=== PATIENT | female | born 1955 | race Caucasian/White ===

== ENCOUNTER 2021-04-26 10:10 | Outpatient (REF) | payer MEDICARE, OTHER, SELFPAY ==
--- NOTE | ~2021-04-26 | XR_ITS ---
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 Left shoulder pain. COMPARISON: None TECHNIQUE: 3 views of the lumbosacral spine and 4 views, 6 images of the left shoulder were obtained. FINDINGS: Lumbosacral spine: There is a transitional lumbar vertebrae present with with bilateral partial sacralization. Mild thoracolumbar levoscoliosis is present. There is grade 1 anterolisthesis of L3 and grade 1 retrolisthesis of L1 vertebral body. Moderate multilevel degenerative spondylosis related changes are noted throughout the entire lower lumbar and upper lumbar spine. Significant facet joint arthritic changes are noted bilaterally. The prespinal soft tissues are remarkable for atherosclerotic disease of the aorta including splenic arterial calcifications. Left shoulder: The bony alignments are intact. Decreased joint space, subchondral sclerosis, osteophyte formations, consistent with severe osteoarthrosis is noted at the glenohumeral joint. Acromioclavicular joint appears unremarkable. The soft tissues are unremarkable. No evidence of any superimposed fracture or subluxation or dislocation. XR/XR shoulder LT min 2V IMPRESSION: 1. The lumbosacral spine is remarkable for bilateral partial sacralization with thoracolumbar mild levoscoliosis and superimposed grade 1 anterolisthesis of L3 and grade 1 retrolisthesis of L1 vertebral body and multilevel moderate degenerative spondylosis and significant facet degenerative arthritic changes. 2. The left shoulder shows severe osteoarthrosis of the glenohumeral joint.
--- NOTE | ~2021-04-26 | XR_ITS ---
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 Left shoulder pain. COMPARISON: None TECHNIQUE: 3 views of the lumbosacral spine and 4 views, 6 images of the left shoulder were obtained. FINDINGS: Lumbosacral spine: There is a transitional lumbar vertebrae present with with bilateral partial sacralization. Mild thoracolumbar levoscoliosis is present. There is grade 1 anterolisthesis of L3 and grade 1 retrolisthesis of L1 vertebral body. Moderate multilevel degenerative spondylosis related changes are noted throughout the entire lower lumbar and upper lumbar spine. Significant facet joint arthritic changes are noted bilaterally. The prespinal soft tissues are remarkable for atherosclerotic disease of the aorta including splenic arterial calcifications. Left shoulder: The bony alignments are intact. Decreased joint space, subchondral sclerosis, osteophyte formations, consistent with severe osteoarthrosis is noted at the glenohumeral joint. Acromioclavicular joint appears unremarkable. The soft tissues are unremarkable. No evidence of any superimposed fracture or subluxation or dislocation. XR/XR lumbar spine 2-3V IMPRESSION: 1. The lumbosacral spine is remarkable for bilateral partial sacralization with thoracolumbar mild levoscoliosis and superimposed grade 1 anterolisthesis of L3 and grade 1 retrolisthesis of L1 vertebral body and multilevel moderate degenerative spondylosis and significant facet degenerative arthritic changes. 2. The left shoulder shows severe osteoarthrosis of the glenohumeral joint.
== END 2021-04-26 10:11 | disposition home or self-care (01) ==
LOC: HO.XRAY 10:10
PROVIDERS: PCP Internal Medicine; Visit Provider Internal Medicine
DX: M47.816 Spondylosis without myelopathy or radiculopathy, lumbar region (principal); M25.512 Pain in left shoulder
CPT/HCPCS: 72100; 73030; 99202

== ENCOUNTER 2021-05-05 05:53 | Outpatient (REF) | payer MEDICARE, OTHER, SELFPAY ==
--- NOTE | ~2021-05-05 | FL_ITS ---
EXAMINATION: XR FLUOROSCOPY WITH IMAGES CLINICAL INFORMATION: M47.816 - Spondylosis without myelopathy or radiculopathy COMPARISON: Radiographs lumbar spine 04/26/2021 TECHNIQUE: Fluoroscopy performed by Dr. Destin Medel. Fluoroscopy time: 0.5 minutes DAP: 12.1 Gycm2 Images: 4 FINDINGS: There is transitional vertebrae at lumbosacral junction with partial lumbarization of the sacrum. For the purposes of this exam, the transitional vertebrae is considered S1. There are multilevel degenerative changes with variable disc narrowing and vertebral spurring. There are spinal needles overlying the outer left L3, L4, and L5 neural foramen and outer right L4 and L5 neural foramen. There is contrast seen in the respective nerve sheaths. Some early transforaminal epidural extension is suggested. No visible vascular communication. FL/FL guidance in treatment room IMPRESSION: Fluoroscopy for pain management procedures.
== END 2021-05-05 05:54 | disposition home or self-care (01) ==
LOC: HO.RADIR 05:53
PROVIDERS: Visit Provider Internal Medicine
DX: M47.816 Spondylosis without myelopathy or radiculopathy, lumbar region (principal); I10 Essential (primary) hypertension; E03.9 Hypothyroidism, unspecified; E66.01 Morbid (severe) obesity due to excess calories; Z79.899 Other long term (current) drug therapy
CPT/HCPCS: 64493; 64494; Q9967

== ENCOUNTER → 2021-05-17 10:05 | Outpatient (BNVA) | payer MEDICARE, OTHER, SELFPAY | PROVIDERS: PCP Internal Medicine; Visit Provider Internal Medicine | DX: M54.30 Sciatica, unspecified side (principal); M47.816 Spondylosis without myelopathy or radiculopathy, lumbar region; M54.9 Dorsalgia, unspecified; M25.512 Pain in left shoulder; G89.29 Other chronic pain | CPT/HCPCS: 99212 ==

== ENCOUNTER → 2021-06-04 09:31 | Outpatient (BNVA) | payer MEDICARE, OTHER, SELFPAY | PROVIDERS: PCP Internal Medicine; Visit Provider Internal Medicine | DX: Z51.81 Encounter for therapeutic drug level monitoring (principal); F11.20 Opioid dependence, uncomplicated; M54.9 Dorsalgia, unspecified; M25.512 Pain in left shoulder; M47.816 Spondylosis without myelopathy or radiculopathy, lumbar region; G89.29 Other chronic pain | CPT/HCPCS: 99212 ==

== ENCOUNTER 2021-06-23 06:18 | Outpatient (REF) | payer MEDICARE, OTHER, SELFPAY ==
--- NOTE | ~2021-06-23 | FL_ITS ---
EXAMINATION: XR FLUOROSCOPY WITH IMAGES CLINICAL INFORMATION: Left shoulder pain COMPARISON: Radiographs of shoulder from 04/26/2021 TECHNIQUE: Fluoroscopy performed by Dr. Medel. Fluoroscopy time: 0.23 minutes DAP: 0.386 Gycm2 Images: 1 image is saved FL/FL guidance in treatment room FINDINGS AND IMPRESSION: Fluoroscopic imaging performed at time of the injection procedure into the region of the degenerated glenohumeral joint. Please refer to the procedure report by Dr. Medel.
== END 2021-06-23 06:19 | disposition home or self-care (01) ==
LOC: HO.RADIR 06:18
PROVIDERS: Visit Provider Internal Medicine
DX: M25.512 Pain in left shoulder (principal)
CPT/HCPCS: 20610; J3300; Q9967

== ENCOUNTER → 2021-07-23 08:46 | Outpatient (BNVA) | payer MEDICARE, OTHER, SELFPAY | PROVIDERS: PCP Internal Medicine; Visit Provider Internal Medicine | DX: M47.816 Spondylosis without myelopathy or radiculopathy, lumbar region (principal); M25.512 Pain in left shoulder; Z79.891 Long term (current) use of opiate analgesic | CPT/HCPCS: Q3014 ==

== ENCOUNTER 2021-08-04 06:17 | Outpatient (REF) | payer MEDICARE, OTHER, SELFPAY ==
--- NOTE | ~2021-08-04 | FL_ITS ---
EXAMINATION: XR FL GUIDANCE WITH IMAGES CLINICAL INFORMATION: Pain. COMPARISON: None TECHNIQUE: Fluoroscopy performed by MD Gianfranco. Fluoroscopy Time: 0.6 minutes. DAP: 2.6 Gycm2. Images: 3. FINDINGS: Images demonstrate needle placement adjacent to the left L3-L4 and L5 vertebral bodies. FL/FL guidance in treatment room IMPRESSION: Fluoroscopy guidance for pain management procedure.
== END 2021-08-04 06:18 | disposition home or self-care (01) ==
LOC: HO.RADIR 06:17
PROVIDERS: Visit Provider Internal Medicine
DX: M47.816 Spondylosis without myelopathy or radiculopathy, lumbar region (principal); G89.29 Other chronic pain
CPT/HCPCS: 64635; 64636

== ENCOUNTER 2021-08-11 10:08 | Day surgery (SDC) | payer MEDICARE, OTHER, SELFPAY ==
--- NOTE | ~2021-08-11 | FL_ITS ---
EXAMINATION: XR FLUOROSCOPY WITH IMAGES CLINICAL INFORMATION: Pain COMPARISON: August 04, 2021 TECHNIQUE: Fluoroscopy performed by Dr. Medel. Fluoroscopy time: 0.6 minutes DAP: 3.89 Gycm2 Images: 2 FINDINGS: 3 Erhard are seen positioned adjacent to superior aspect of L4 to inferior aspect of L5 FL/FL guidance in OR IMPRESSION: Fluoroscopy provided for pain management.
--- NOTE | 2021-08-11 17:01 | MHC.SHP ---
Pre-Procedural Eval Section A Date of Service: 08/11/21 The patient is an INPATIENT: No Changes since office visit: Yes Patient answered all questions The History & Physical has been completed within 30 days and I have reviewed it.: No Section B Chief Complaint: spondylosis lumbar Relevant Family History (Specify if Yes): No Allergies: Allergies Allergy/AdvReac Type Severity Reaction Status Date / Time No Known Allergies Allergy Verified 08/04/21 10:34 Plan Diagnosis/Plan: Unchanged I have reviewed the history and physical and performed a pertinent physical examination on my patient. No changes have occurred unless specified.
--- NOTE | 2021-08-11 17:02 | P.OP_ITS ---
Operative Note Operative Note Date of Service: 08/11/21 Narrative: Radiofrequency lesioning medial branch nerves, Right L3, L4 medial branches and L5 dorsal ramus (L4/5 and L5/S1) (2 levels, 3 nerves) After obtaining written consent, pre-procedure blood pressure and heart rate were stable and recorded in the nursing record. The patient was placed in the prone position. The lumbar area was prepped with chloraprep and draped in sterile fashion. The skin over the target for each medial branch nerve was anesthetized with 0.5% lidocaine. An 18 gauge radiofrequency cannula was advanced to each target site under fluoroscopic guidance. No paresthesias were elicited with needle placement and aspiration was negative for heme and CSF. Impedences were verified under 600 ohms. Sensory testing (50 Hz) and then motor testing (2 Hz) confirmed needle placement at each site within the appropriate voltage thresholds. Each site was injected with 1 ml 2% preservative-free lidocaine. Radiofrequency lesioning was performed for 90 seconds at 80 deg Celcius. Each site was then injected with 0.5ml 0.5% bupivacaine. The needle was removed, skin cleansed and a sterile bandage was applied. The patient tolerated the procedure well and no complications were encountered. Following the p rocedure the patient's vital signs were stable. The patient was discharged home in good condition with post-procedural instructions. Time Out: Immediately prior to the procedure, the following was verbally confirmed that there is a signed consent form and that the correct patient, planned procedure, site and side are consistent with documentation and that necessary equipment and/or blood products are available prior to the start of the case. Complications: none EBL: <5 cc
--- NOTE | 2021-08-11 17:02 | P.BOP_ITS ---
Brief Operative Note Date of Service: 08/11/21 Pre-op diagnosis: Lumbar spondylosis Post-op diagnosis: same Procedure: Radiofrequency ablation lumbar medial branches right side Surgeon: Destin Medel MD Anesthesia: local Was an Branch Service Associate used for this Procedure?: No Estimated blood loss (mL): 2 Pathology: none sent Condition: stable Disposition: same day
== END 2021-08-11 12:30 | disposition home or self-care (01) ==
PROVIDERS: PCP Internal Medicine; Visit Provider Internal Medicine
PROC: (CPT 64635; principal; 2021-08-11 11:00)
DX: M47.816 Spondylosis without myelopathy or radiculopathy, lumbar region (principal)
CPT/HCPCS: 64635; 64636

== ENCOUNTER → 2021-08-20 08:53 | Outpatient (BNVA) | payer MEDICARE, OTHER, SELFPAY | PROVIDERS: PCP Internal Medicine; Visit Provider Internal Medicine | DX: M47.816 Spondylosis without myelopathy or radiculopathy, lumbar region (principal); M79.18 Myalgia, other site | CPT/HCPCS: Q3014 ==

== ENCOUNTER → 2021-09-27 08:54 | Outpatient (BNVA) | payer MEDICARE, OTHER, SELFPAY | PROVIDERS: PCP Internal Medicine; Visit Provider Internal Medicine | DX: Z51.81 Encounter for therapeutic drug level monitoring (principal); M79.18 Myalgia, other site; M54.9 Dorsalgia, unspecified; M25.512 Pain in left shoulder; M47.816 Spondylosis without myelopathy or radiculopathy, lumbar region; G89.29 Other chronic pain; Z79.891 Long term (current) use of opiate analgesic | CPT/HCPCS: 20552; 99212; J3300 ==

== ENCOUNTER → 2021-10-25 09:03 | Outpatient (BNVA) | payer MEDICARE, OTHER, SELFPAY | PROVIDERS: PCP Internal Medicine; Visit Provider Internal Medicine | DX: Z79.891 Long term (current) use of opiate analgesic (principal) | CPT/HCPCS: 99211 ==

== ENCOUNTER → 2021-11-22 08:59 | Outpatient (BNVA) | payer MEDICARE, OTHER, SELFPAY | PROVIDERS: PCP Internal Medicine; Visit Provider Internal Medicine | DX: M47.816 Spondylosis without myelopathy or radiculopathy, lumbar region (principal); M79.18 Myalgia, other site; G89.29 Other chronic pain; M54.9 Dorsalgia, unspecified; Z79.891 Long term (current) use of opiate analgesic | CPT/HCPCS: 99212 ==

== ENCOUNTER → 2022-02-18 09:06 | Outpatient (BNVA) | payer MEDICARE, OTHER, SELFPAY | PROVIDERS: PCP Internal Medicine; Visit Provider Internal Medicine | DX: Z51.81 Encounter for therapeutic drug level monitoring (principal); M79.18 Myalgia, other site; M54.9 Dorsalgia, unspecified; G89.29 Other chronic pain; Z79.891 Long term (current) use of opiate analgesic | CPT/HCPCS: 99212 ==

== ENCOUNTER → 2022-05-23 09:43 | Outpatient (BNVA) | payer MEDICARE, OTHER, SELFPAY | PROVIDERS: PCP Internal Medicine; Visit Provider Internal Medicine | DX: Z51.81 Encounter for therapeutic drug level monitoring (principal); M71.22 Synovial cyst of popliteal space [Baker], left knee; M54.16 Radiculopathy, lumbar region | CPT/HCPCS: 99212; J2795; J3301 ==

== ENCOUNTER 2022-06-22 06:02 | Outpatient (REF) | payer MEDICARE, OTHER, SELFPAY ==
--- NOTE | ~2022-06-22 | FL_ITS ---
EXAMINATION: XR FLUOROSCOPY WITH IMAGES CLINICAL INFORMATION: Radiculopathy lumbar region. COMPARISON: 08/04/2021 and 08/11/2021. TECHNIQUE: Fluoroscopy Supervised By: Dr. Destin Medel. Fluoroscopy Time: 0.1 minutes. Cumulative Dose: 10.4 mGy. DAP: 1.44 Gycm2. Images: 2. FINDINGS: Two images demonstrate needle and contrast overlying the posterior disc space level of L5-S1. FL/FL guidance in treatment room IMPRESSION: Intraoperative fluoroscopy for pain management procedure.
== END 2022-06-22 06:03 | disposition home or self-care (01) ==
LOC: CF 06:02
PROVIDERS: Visit Provider Internal Medicine
DX: M54.16 Radiculopathy, lumbar region (principal)
CPT/HCPCS: 62323; J1040

== ENCOUNTER 2022-07-22 09:30 | Outpatient (REF) | payer MEDICARE, OTHER, SELFPAY ==
--- NOTE | ~2022-07-22 | XR_ITS ---
EXAMINATION: X-RAY BILATERAL CLAVICLES CLINICAL INFORMATION: Pain COMPARISON: Left shoulder radiographs, August 25, 2020 TECHNIQUE: 2 views of the left clavicle 2 views of the right clavicle FINDINGS: Left clavicle. [id number] degenerative changes of the left acromioclavicular joint. Severe degenerative changes of the left glenohumeral articulation, incompletely visualized. No acute osseous abnormality. Right clavicle. Status post right reverse shoulder arthroplasty. Hardware of the proximal humerus is not fully visualized. Alignment appears to be anatomic. Moderate degenerative changes of the right acromioclavicular joint. No acute osseous abnormalities. XR/XR clavicle BI IMPRESSION: 1. Degenerative changes of the bilateral acromioclavicular joints. 2. Severe degenerative changes of the left glenohumeral joint, incompletely evaluated. 3. Status post right reverse shoulder arthroplasty.
== END 2022-07-22 09:31 | disposition home or self-care (01) ==
LOC: HO.XRAY 09:30
PROVIDERS: PCP Internal Medicine; Visit Provider Internal Medicine
DX: M25.511 Pain in right shoulder (principal); M25.512 Pain in left shoulder; Z79.899 Other long term (current) drug therapy
CPT/HCPCS: 73000; 99212

== ENCOUNTER → 2022-08-01 14:22 | Outpatient (BNVA) | payer MEDICARE, OTHER, SELFPAY | PROVIDERS: PCP Internal Medicine; Visit Provider Internal Medicine | DX: M25.519 Pain in unspecified shoulder (principal) | CPT/HCPCS: 99212 ==

== ENCOUNTER → 2022-08-15 12:56 | Outpatient (BNVA) | payer MEDICARE, OTHER, SELFPAY | PROVIDERS: PCP Internal Medicine; Visit Provider Internal Medicine | DX: M17.12 Unilateral primary osteoarthritis, left knee (principal); M71.22 Synovial cyst of popliteal space [Baker], left knee | CPT/HCPCS: 20610; 99212 ==

== ENCOUNTER → 2022-09-16 10:13 | Outpatient (BNVA) | payer MEDICARE, OTHER, SELFPAY | PROVIDERS: PCP Internal Medicine; Visit Provider Nurse Practitioner Family | DX: M25.512 Pain in left shoulder (principal); M54.9 Dorsalgia, unspecified; M47.816 Spondylosis without myelopathy or radiculopathy, lumbar region; G89.29 Other chronic pain; E66.01 Morbid (severe) obesity due to excess calories; Z79.891 Long term (current) use of opiate analgesic | CPT/HCPCS: 99212 ==

== ENCOUNTER → 2022-10-14 10:54 | Outpatient (BNVA) | payer MEDICARE, OTHER, SELFPAY | PROVIDERS: PCP Internal Medicine; Visit Provider Internal Medicine | DX: M17.12 Unilateral primary osteoarthritis, left knee (principal); M54.16 Radiculopathy, lumbar region | CPT/HCPCS: 20610; 99212; J2795; J3301 ==

== ENCOUNTER → 2022-11-25 12:00 | Outpatient (BNVA) | payer MEDICARE, OTHER, SELFPAY | PROVIDERS: PCP Internal Medicine; Visit Provider Internal Medicine ==

== ENCOUNTER 2022-12-05 09:00 | Outpatient (REF) | payer MEDICARE, OTHER, SELFPAY ==
--- NOTE | ~2022-12-05 | MR_ITS ---
EXAMINATION: MR CERVICAL SPINE WITHOUT CONTRAST CLINICAL INFORMATION: Radiculopathy. Self-reported left arm weakness and numbness. COMPARISON: None available. TECHNIQUE: MRI of the cervical spine was obtained using routine sequences without contrast. FINDINGS: Straightening of the cervical lordosis is present and may be secondary to positioning during the examination. Mild multilevel endplate discogenic marrow signal changes are identified. No vertebral body compression deformities or suspicious marrow abnormalities visualized. The craniocervical junction and cerebellar tonsils are normal in configuration. Prominent patchy T2 hyperintensity is noted within the radha. C2-C3: No central or foraminal stenoses. C3-C4: Minimal right uncovertebral joint disc-osteophyte complex. No significant central or foraminal stenoses. C4-C5: No significant central or foraminal stenoses identified. Images of this level are suboptimal secondary to motion artifact. Grossly normal intervertebral disc height. C5-C6: Mild central stenosis. Mild bilateral foraminal stenoses. Findings arise secondary to a mild posterior broad-based disc-osteophyte complex. Approximately 50% overall loss of intervertebral disc craniocaudal height is noted. C6-C7: Moderate left foraminal stenosis. Mild right foraminal stenosis. Mild central stenosis. Findings are present secondary to a mild posterior broad-based disc-osteophyte complex. The intervertebral disc demonstrates approximately 50-75% overall loss of craniocaudal height. The disc-osteophyte complex demonstrates mild left parasagittal and intraforaminal prominence. C7-T1: No central or foraminal stenoses. MR/MR cervical spine wo con IMPRESSION: Mild-moderate multilevel chronic spondylosis of the cervical spine. Findings are most pronounced at C6-C7 where moderate left foraminal stenosis is noted. No direct nerve root impingements or marked central or foraminal stenoses identified.
== END 2022-12-05 09:01 | disposition home or self-care (01) ==
LOC: HO.MRI 09:00
PROVIDERS: PCP Internal Medicine; Visit Provider Internal Medicine
DX: M54.12 Radiculopathy, cervical region (principal)
CPT/HCPCS: 72141

== ENCOUNTER 2022-12-16 11:10 | Outpatient (AMB) | payer MEDICARE, OTHER, SELFPAY ==
--- NOTE | 2022-12-16 11:33 | A.OFFVIS_ITS ---
Intake Vital Signs 12/16/22 11:34 Height 5 ft 5 in Weight 280 lb BMI 46.6 BP 132/78 Blood Pressure Location Lt brachial Position Sitting Respiration 14 Pulse 89 Pulse Source Pulse Oximeter Intake Visit Reasons: Pill count Allergies No Known Allergies Allergy (Verified 10/14/22 11:10) HPI Pill count HPI Details 67-year-old female presenting today for a pill count. No pill was expected, and two pills were presented. She reports worsening of the knee pain. She noticed lump and knots in her infrapatellar region that are exquisitely tender. She also reports shoulder pain. She has limited ROM and feels like the shoulder is locked. Past procedures: 10/14/22: left knee intra-articular joint injection: Greater than 50% % relief. 08/15/22: Left knee intra-articular joint injection: >50% relief. 06/22/2022: L5/S1 Left Parasagittal Interlaminar WARREN - Approximately 75% resolution of low back muscle spasms and posterior leg pain. [facility] Medical History Allergic rhinitis Chronic back pain Essential hypertension Hypothyroidism Left shoulder pain emt intermediate (current) use of opiate analgesic Lumbar spondylosis Morbid obesity Peripheral artery insufficiency Restless leg Surgical History H/O toe surgery H/O total shoulder replacement Review of Systems Const All systems reviewed & are unremarkable except as noted in HPI and below Physical Exam Vital Signs: Last Vital Signs Pulse 89 12/16/22 11:34 Resp 14 12/16/22 11:34 BP 132/78 12/16/22 11:34 BMI result Body Mass Index 46.6 General: Appears afebrile. Alert and oriented. Mood and affect appropriate. Follows and participates in conversation appropriately. Respiratory effort is unlabored. Able to transition from sit to stand unassisted. Ambulates with bilaterally normal heel strike and toe off. Mild swelling in the left medial infrapatellar region, tender to palpation. No particular tenderness posteriorly. Office Procedures Joint Injection/Drain Joint Injection/Drain Details: Left AC joint under US guidance. Primary Site: left shoulder Prep: site was prepped using sterile technique Injected: 20 mg of (At each of the AC joint and bicipital groove), Kenalog, with 1 mL of (ropivacaine 0.5%), in the joint and other (bicipital groove) Approach Used: anterior Procedure: The patient tolerated the procedure well Coding - Bicipital Groove Injection - Acromioclavicular with ultrasound guidance Procedure code (CPT) selection complete Results Reviewed Results Reviewed: No imaging is available for review. Assessment & Plan Assessment & Plan (1) Osteoarthritis of left knee: Code(s): M17.12 - Unilateral primary osteoarthritis, left knee (2) Pain in clavicular joint: Code(s): M25.519 - Pain in unspecified shoulder (3) Left shoulder pain: Code(s): M25.512 - Pain in left shoulder Plan Patient is status post left AC joint and bicipital groove injection. Patient tolerated procedure well and was discharged home in stable condition with discharge instructions. All questions were answered. A refill of Vicodin 5-325 mg was provided to the patient. Pill count and Mass Pat was consistent. Patient will follow-up for ultrasound examination of the left knee and potential left infrapatellar saphenous nerve block. Scribed for Dr. Medel by Wesley Saunders, medical coordinator pesticide use, on 12/16/2022. I, Dr. Medel, have personally reviewed and agree with the information entered by the scribe. Medications: Refilled hydrocodone-acetaminophen 5-325 mg 1 tab PO DAILY PRN 30 tabs 0RF pain Coding Level of Care Code Est Pt Level 4 (42858) Diagnoses Osteoarthritis of left knee M17.12 Pain in clavicular joint M25.519 Left shoulder pain M25.512 CPT Codes Coding - Joint 6: - Acromioclavicular with ultrasound guidance ([id number]) Coding - Joint 1: - Bicipital Groove Injection ([id number])
[2022-12-16 11:34] VITALS: BP 132/78; PULSE 89; RESP 14; BMI 46.6
== END 2022-12-16 12:03 | disposition home or self-care (01) ==
PROVIDERS: PCP Internal Medicine; Visit Provider Internal Medicine
DX: M25.512 Pain in left shoulder (principal); Z79.891 Long term (current) use of opiate analgesic
CPT/HCPCS: 20550; 20606; 99214

== ENCOUNTER → 2022-12-16 11:10 | Outpatient (BNVA) | payer MEDICARE, OTHER, SELFPAY | PROVIDERS: PCP Internal Medicine; Visit Provider Internal Medicine | DX: M17.12 Unilateral primary osteoarthritis, left knee (principal); M25.512 Pain in left shoulder | CPT/HCPCS: 20550; 20606; 99212; J2795; J3301 ==

== ENCOUNTER 2023-01-23 08:42 | Outpatient (AMB) | payer MEDICARE, OTHER, SELFPAY ==
[2023-01-23 08:45] VITALS: BP 128/80; PULSE 101; RESP 14; O2SAT 96; BMI 45.9
--- NOTE | 2023-01-23 08:45 | MHC.OFFVIS ---
Intake Vital Signs 01/23/23 08:45 Height 5 ft 5 in Weight 276 lb BMI 45.9 BP 128/80 Blood Pressure Location Lt radial Position Sitting Respiration 14 Pulse 101 H Pulse Source Pulse Oximeter Pulse Oximetry (%) 96 Oxygen Delivery Method Room Air Intake Visit Reasons: Pill Count Allergies No Known Allergies Allergy (Verified 01/23/23 08:49) Medication List - Last Reconciled 01/23/23 by Karina Li LPN cyclobenzaprine 10 mg PO BEDTIME diclofenac sodium 3% 1 appl topical BID furosemide 20 mg PO DAILY hydrocodone-acetaminophen 5-325 mg 1 tab PO DAILY PRN levothyroxine 200 mcg PO DAILY levothyroxine 75 mcg PO DAILY levothyroxine 50 mcg PO DAILY lidocaine 5% 0 patches topical losartan-hydrochlorothiazide 100-25 mg 1 tab PO DAILY meloxicam 15 mg PO DAILY ropinirole 1 mg PO TID HPI Pill Count HPI Details 67-year-old female who presents today to the office for a pill count. 0 pills was expected, and 18 pills were presented. She also reports swelling and painful lipomas in her lower extremities, especially in the left leg. She is interested in steroid injection to the lipomas if possible today. Past procedures: 12/16/22: left AC joint and bicipital groove injection: Moderate relief 10/14/22: left knee intra-articular joint injection: Greater than 50% % relief. 08/15/22: Left knee intra-articular joint injection: >50% relief. 06/22/2022: L5/S1 Left Parasagittal Interlaminar WARREN - Approximately 75% resolution of low back muscle spasms and posterior leg pain. 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 Alert and oriented. Mood and affect appropriate. Follows and participates in conversation appropriately. Respiratory effort is unlabored. Able to transition from sit to stand unassisted. Ambulates with bilaterally normal heel strike and toe off. Ultrasound examination of the left lower extremity reveals multiple lipomas. Areas of tenderness correspond to subcutaneous edematous fat tissue. Office Procedures Injection-Therapetic Trigger Single Point: 28243-[id number] point injection, 1 or 2 Trigger Point Injections Pre-procedure diagnosis: Myofascial pain Post-procedure diagnosis: Myofascial pain Site and number of trigger points: Left tibialis anterior Solution: Total volume administered 10 ml (9 ml bupivacaine 0.25% + Kenalog 40mg) The procedure, its benefits, and its risks were explained to the patient and all questions were answered. Prior to the start of the procedure, a ?time out? was performed to confirm correct patient, procedure, and laterality. Trigger points were identified by manual palpation and marked. The skin was cleaned with Chloraprep. A 1.5 inch 25 G needle was used. Dry needling then took place for five seconds. Approximately 0.5 ml to 1 ml of injectate was delivered to the trigger point followed by dry needling for five seconds. The patient tolerated the procedure well. The patient tolerated the procedure well, without complication. The patient denied any numbness, paresthesias, or weakness. Post-procedure vitals were recorded as part of the nursing discharge note in electronic medical record. Following a period of observation, the patient was discharged in stable condition with written discharge instructions. Results Reviewed Results Reviewed: No imaging is available for review. 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 The patient tolerated the procedure well and was discharged home in stable condition with discharge instructions.? All questions were answered. Discussed steroid injections vs. removal with surgical interventions for treatment of lipoma. For the time being, the patient will continue to monitor it. A refill of Vicodin 5-325 mg was provided to the patient starting 02/01/23. Pill count and Mass Pat was consistent. Follow up for pill count or as needed. Scribed for Dr. Medel by Wesley Saunders, medical payment poster, on 01/23/2023. I, Dr. Medel, have personally reviewed and agree with the information entered by the scribe. Medications: Refilled hydrocodone-acetaminophen 5-325 mg 1 tab PO DAILY PRN 30 tabs 0RF pain Coding Level of Care Code Est Pt Level 3 (69911) Diagnoses Pain of left anterior lower extremity M79.605 Laterality: left [facility] (current) use of opiate analgesic Z79.891 Myofascial pain M79.18 CPT Codes Details - Trigger Single Point: [id number]-[id number] point injection, 1 or 2 ([id number])
== END 2023-01-23 09:18 | disposition home or self-care (01) ==
PROVIDERS: PCP Internal Medicine; Visit Provider Internal Medicine
DX: M79.605 Pain in left leg (principal); Z79.891 Long term (current) use of opiate analgesic; M79.18 Myalgia, other site
CPT/HCPCS: 20552; 99213

== ENCOUNTER → 2023-01-23 08:42 | Outpatient (BNVA) | payer MEDICARE, OTHER, SELFPAY | PROVIDERS: PCP Internal Medicine; Visit Provider Internal Medicine | DX: M79.18 Myalgia, other site (principal); M79.605 Pain in left leg; Z79.891 Long term (current) use of opiate analgesic | CPT/HCPCS: 20552; 99212; J3301 ==

== ENCOUNTER 2023-02-21 09:26 | Outpatient (AMB) | payer MEDICARE, OTHER, SELFPAY ==
--- NOTE | 2023-02-21 09:46 | MHC.OFFVIS ---
Intake Vital Signs 02/21/23 09:47 Height 5 ft 5 in Weight 282 lb BMI 46.9 BP 175/92 H Blood Pressure Location Lt radial Position Sitting Respiration 18 Pulse 80 Pulse Source Pulse Oximeter Pulse Oximetry (%) 97 Oxygen Delivery Method Room Air Intake Visit Reasons: PILL COUNT Allergies No Known Allergies Allergy (Verified 02/21/23 09:47) HPI HPI Comments History of Present Illness Details Leona is a very pleasant 67 year old female who presents to the office for follow up chronic pain and chronic opioid therapy management. Patient is prescribed hydrocodone acetaminophen 5-325mg take 1 tablet daily as needed. Patient arrived today with the expectation of having 0 pills, she presented 0 pills which were counted in the presence of 2 staff and return to the patient in the original prescription bottle. She has yet to corn picker her last prescription from the pharmacy as she only takes her medication as needed and tries to use it sparingly. Confirmed with pharmacy, prescription is filled and ready for corn picker. This demonstrates responsible attitude toward patient's opioid medications. Pain is reported today as 3/10 and last dose of pain medication was taken 2 days ago. Pain is well managed on current opioid regimen. Patient denies any recent changes or exacerbations of chronic pain and states she is able to engage in activities of daily living with minimal interruption due to chronic pain. Patient denies side effects including somnolence, constipation, itching, dyspnea, rash, dizziness or weakness. left leg TPIs performed at last visit, patient reports minimal relief. Past procedures: 01/23/23: left leg TPIs: minimal relief 12/16/22: left AC joint and bicipital groove injection: Moderate relief 10/14/22: left knee intra-articular joint injection: Greater than 50% % relief. 08/15/22: Left knee intra-articular joint injection: >50% relief. 06/22/2022: L5/S1 Left Parasagittal Interlaminar WARREN - Approximately 75% resolution of low back muscle spasms and posterior leg pain. PFSH Medical History Allergic rhinitis Chronic back pain Essential hypertension Hypothyroidism Left shoulder pain FDC (current) use of opiate analgesic Lumbar spondylosis Morbid obesity Peripheral artery insufficiency Restless leg Surgical History H/O toe surgery H/O total shoulder replacement Review of Systems Const All systems reviewed & are unremarkable except as noted in HPI and below Physical Exam Vital Signs: Last Vital Signs Pulse 80 02/21/23 09:47 Resp 18 02/21/23 09:47 BP 175/92 H 02/21/23 09:47 Pulse Ox 97 02/21/23 09:47 Oxygen Delivery Method Room Air 02/21/23 09:47 BMI result Body Mass Index 46.9 General: awake, alert, oriented. Answers questions appropriately. Fully engaged in examination. Skin: warm, dry, intact HEENT: Normocephalic. Hearing intact. Cardiac: External chest normal in appearance. Respiratory: No cough, audible wheezing or stridor. Abdomen: without gross distension. MS: ambulates with use of a cane Neurological: Oriented to person, place, time and situation. Thought process intact. Psychiatric: Appropriate mood and affect. Good judgment and insight. Assessment & Plan Assessment & Plan (1) Leg pain, anterior: Code(s): M79.606 - Pain in leg, unspecified Qualifiers: Laterality: left Qualified Code(s): M79.605 - Pain in left leg (2) FDC (current) use of opiate analgesic: Code(s): Z79.891 - FDC (current) use of opiate analgesic (3) Myofascial pain: Code(s): M79.18 - Myalgia, other site Plan Masspat was reviewed and without concerns. No obvious signs of diversion, abuse or misuse of the opioid medications. Last prescription is at pharmacy pending corn picker, confirmed with pharmacy. No refill sent today. Patient to follow-up in the office in 1 month, sooner if needed. All questions and concerns have been answered and patient agrees with the plan. Coding Level of Care Code Est Pt Level 3 (53963) Diagnoses Pain of left anterior lower extremity M79.605 Laterality: left FDC (current) use of opiate analgesic Z79.891 Myofascial pain M79.18
[2023-02-21 09:47] VITALS: BP 175/92; PULSE 80; RESP 18; O2SAT 97; BMI 46.9
== END 2023-02-21 09:53 | disposition home or self-care (01) ==
PROVIDERS: PCP Internal Medicine; Visit Provider Registered Nurse Emergency
DX: M79.605 Pain in left leg (principal); Z79.891 Long term (current) use of opiate analgesic; M79.18 Myalgia, other site
CPT/HCPCS: 99213

== ENCOUNTER → 2023-02-21 09:26 | Outpatient (BNVA) | payer MEDICARE, OTHER, SELFPAY | PROVIDERS: PCP Internal Medicine; Visit Provider Registered Nurse Emergency | DX: Z51.81 Encounter for therapeutic drug level monitoring (principal); M79.605 Pain in left leg; M79.18 Myalgia, other site; Z79.891 Long term (current) use of opiate analgesic | CPT/HCPCS: 99212 ==

== ENCOUNTER 2023-03-21 10:36 | Outpatient (AMB) | payer MEDICARE, OTHER, SELFPAY ==
--- NOTE | 2023-03-21 10:55 | MHC.OFFVIS ---
Intake Vital Signs 03/21/23 10:56 Height 5 ft 5 in Weight 281 lb BMI 46.8 BP 137/67 Blood Pressure Location Lt brachial Position Sitting Respiration 14 Pulse 90 Pulse Source Pulse Oximeter Pulse Oximetry (%) 96 Oxygen Delivery Method Room Air Intake Visit Reasons: PILL COUNT/Random UDS CONFIRMED Allergies No Known Allergies Allergy (Verified 03/21/23 10:55) HPI HPI Comments History of Present Illness Details Leona is a very pleasant 67 year old female who presents to the office for follow up chronic pain and chronic opioid therapy management. Patient is prescribed hydrocodone acetaminophen 5-325mg take 1 tablet daily as needed. Patient arrived today with the expectation of having 2 pills, she presented 15 pills which were counted in the presence of two staff members and returned to the patient in the original prescription bottle. She only takes her medication as needed and tries to use it sparingly. This demonstrates responsible attitude toward patient's opioid medications. Pain is reported today as 5/10 and last dose of pain medication was taken yesterday. Pain is adequately managed on current opioid regimen. Patient denies side effects including somnolence, constipation, itching, dyspnea, rash, dizziness or weakness. Patient reports that her LLE pain has started to worsen, she had discussed with Dr Medel at previous visit, there was talk about referral for surgical removal of lipomas but she was going to monitor them for the time being. Today she would like to persue referral for surgical removal as she feels they are getting worse. She has been working on losing weight to help with left leg/knee pain. She currently takes phentermine with reported 10lb weight loss over the last 3 months. She is not interested in referral to weight management today. Past procedures: 01/23/23: left leg TPIs: minimal relief 12/16/22: left AC joint and bicipital groove injection: Moderate relief 10/14/22: left knee intra-articular joint injection: Greater than 50% % relief. 08/15/22: Left knee intra-articular joint injection: >50% relief. 06/22/2022: L5/S1 Left Parasagittal Interlaminar WARREN - Approximately 75% resolution of low back muscle spasms and posterior leg pain. 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 Answers questions appropriately. Fully engaged in examination. Skin: warm, dry, intact HEENT: Normocephalic. Hearing intact. Cardiac: External chest normal in appearance. Respiratory: No cough, audible wheezing or stridor. Abdomen: without gross distension. MS: ambulates with use of a cane Transitions from sit to stand without assistance Neurological: Oriented to person, place, time and situation. Thought process intact. Psychiatric: Appropriate mood and affect. Good judgment and insight. 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 No obvious signs of diversion, abuse or misuse of the opioid medications. Hydrocodone-acetaminophen 5-325mg take 1 tab by mouth daily as needed, refill sent with fill date 04/04/23. Lab req given to patient today for random UDS. Referral placed for general surgery to evaluate/treat LLE lipoma. Patient to follow-up in the office in 1 month, sooner if needed. All questions and concerns have been answered and patient agrees with the plan. 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
[2023-03-21 10:56] VITALS: BP 137/67; PULSE 90; RESP 14; O2SAT 96; BMI 46.8
== END 2023-03-21 11:17 | disposition home or self-care (01) ==
PROVIDERS: PCP Internal Medicine; Visit Provider Registered Nurse Emergency
DX: M79.605 Pain in left leg (principal); M79.18 Myalgia, other site; Z79.891 Long term (current) use of opiate analgesic; D17.24 Benign lipomatous neoplasm of skin and subcutaneous tissue of left leg
CPT/HCPCS: 99213

== ENCOUNTER → 2023-03-21 10:36 | Outpatient (BNVA) | payer MEDICARE, OTHER, SELFPAY | PROVIDERS: PCP Internal Medicine; Visit Provider Registered Nurse Emergency | DX: Z51.81 Encounter for therapeutic drug level monitoring (principal); D17.24 Benign lipomatous neoplasm of skin and subcutaneous tissue of left leg; M79.605 Pain in left leg; M79.18 Myalgia, other site; Z79.891 Long term (current) use of opiate analgesic | CPT/HCPCS: 99212 ==

== ENCOUNTER 2023-04-11 10:06 | Outpatient (AMB) | payer MEDICARE, OTHER, SELFPAY ==
[2023-04-11 10:15] VITALS: BP 146/88; PULSE 95; BMI 46.9
--- NOTE | 2023-04-11 10:15 | A.OFFVIS_ITS ---
Intake Vital Signs 04/11/23 10:15 Height 5 ft 5 in Weight 282 lb BMI 46.9 BP 146/88 H Blood Pressure Location Rt radial Position Sitting Pulse 95 Intake Visit Reasons: Lipoma~ Lt lower leg Intake Note: Patient referred by Dr. Shaikh for lipoma on Lt lower leg. Has been present for 1yr. Patient c/o: More lesions appearing on Rt lower leg. Painful when swollen. Explosive Ordnance Specialist Required: No Accompanied by: Self / Same As Patient Allergies No Known Allergies Allergy (Verified 04/11/23 10:17) HPI HPI Comments History of Present Illness Details Patient presents for evaluation of a left lower leg lipomas. She is being evaluated by her chronic pain clinic physician and felt these masses and referred her here for further evaluation. Patient has a plethora of medical problems. Chart was reviewed patient evaluated. [facility] Medical History longterm (current) use of opiate analgesic Peripheral artery insufficiency Essential hypertension Hypothyroidism Morbid obesity Restless leg Chronic back pain Allergic rhinitis Left shoulder pain Lumbar spondylosis Surgical History H/O toe surgery H/O total shoulder replacement Alcohol intake: current Alcohol intake frequency: holidays/special occasions only Alcohol type: beer and wine Patient Tobacco Use Status: Never used Tobacco Physical Exam Vital Signs: Last Vital Signs Pulse 95 04/11/23 10:15 BP 146/88 H 04/11/23 10:15 BMI result Body Mass Index 46.9 Const Other: Extremely corpulent female. Very pleasant. GI Other: Enormous pannus. Abdomen soft benign. Extrem Other: Very corpulent bilateral lower extremities. Left mid anterior reeves area demonstrates approximately 3 x 2 soft tissue mass consistent with a lipoma. Patient states she has other lipomas but because of a rather challenging exam secondary to the patient's size, I am unable to palpate any more these. Assessment & Plan Assessment & Plan (1) Lipoma of left lower extremity: Code(s): D17.24 - Benign lipomatous neoplasm of skin and subcutaneous tissue of left leg Plan Current plan is 10 ultrasound of the left lower extremity and rule out any other occult pathology. Patient will see me after the study. Further interventions studies be directed by the results of the above-mentioned sonogram. All questions answered. Coding Level of Care Code New Pt Level 4 (32913) Diagnoses Lipoma of left lower extremity D17.24
== END 2023-04-11 10:26 | disposition home or self-care (01) ==
PROVIDERS: PCP Internal Medicine; Referring Provider Registered Nurse Emergency; Visit Provider Surgery
DX: D17.24 Benign lipomatous neoplasm of skin and subcutaneous tissue of left leg (principal)
CPT/HCPCS: 99204

== ENCOUNTER → 2023-04-11 10:06 | Outpatient (BNVA) | payer MEDICARE, OTHER, SELFPAY | PROVIDERS: PCP Internal Medicine; Referring Provider Registered Nurse Emergency; Visit Provider Surgery | DX: D17.24 Benign lipomatous neoplasm of skin and subcutaneous tissue of left leg (principal); Z79.891 Long term (current) use of opiate analgesic | CPT/HCPCS: 99202 ==

== ENCOUNTER 2023-04-21 11:07 | Outpatient (REF) | payer MEDICARE, OTHER, SELFPAY ==
--- NOTE | ~2023-04-21 | XR_ITS ---
EXAMINATION: XR HIP, LEFT CLINICAL INFORMATION: Hip pain COMPARISON: None available. TECHNIQUE: Two views of the left hip. FINDINGS: No acute fracture or dislocation. Hip joint spaces are maintained. Moderate osteoarthritis involving the pubic symphysis with loss of joint space and osteophytosis. Soft tissues are unremarkable. XR/XR hip LT w PEL1V IMPRESSION: Moderate osteoarthritis involving the pubic symphysis with loss of joint space and osteophytosis. Hip joint spaces are maintained.
== END 2023-04-21 11:08 | disposition home or self-care (01) ==
LOC: HO.XRAY 11:07
PROVIDERS: Absent Provider Registered Nurse Emergency; PCP Internal Medicine; Visit Provider Internal Medicine
DX: M25.552 Pain in left hip (principal); M47.816 Spondylosis without myelopathy or radiculopathy, lumbar region
CPT/HCPCS: 73502; 99212

== ENCOUNTER 2023-04-21 11:07 | Outpatient (AMB) | payer MEDICARE, OTHER, SELFPAY ==
--- NOTE | 2023-04-21 11:21 | MHC.OFFVIS ---
Intake Vital Signs 04/21/23 11:24 Height 5 ft 5 in Weight 277 lb BMI 46.1 BP 143/74 H Blood Pressure Location Lt radial Position Sitting Respiration 12 Pulse 100 Pulse Source Pulse Oximeter Pulse Oximetry (%) 95 Oxygen Delivery Method Room Air Intake Visit Reasons: Provider Discussion/confirmed Allergies No Known Allergies Allergy (Verified 04/21/23 11:25) Medication List - Last Reconciled 04/21/23 by Karina Li LPN cyclobenzaprine 10 mg PO BEDTIME diclofenac sodium 3% 1 appl topical BID furosemide 20 mg PO DAILY levothyroxine 200 mcg PO DAILY levothyroxine 75 mcg PO DAILY lidocaine 5% 0 patches topical losartan-hydrochlorothiazide 100-25 mg 1 tab PO DAILY meloxicam 15 mg PO DAILY ropinirole 1 mg PO TID HPI Provider Discussion/confirmed HPI Details 67-year-old female who presents today to the office for a follow-up discussion. She states that her left-sided low back pain is worsening. She also has pain in her inguinal region on left side. She describes her pain as an aching sensation. Movement worsens the pain. She has difficulty sleeping. She is taking meloxicam. She has not tried gabapentin in the past. She saw Dr. Stewart for removal of her lower extremity lipomas. She has a scheduled appointment for US extremities on 05/01/2023. She had a left-sided RFA in July 2021 with good relief. She also reports worsening shoulder pain. Past procedures: 01/23/23: Trigger Point Injections: 50% relief. 12/16/22: left AC joint and bicipital groove injection: Moderate relief 10/14/22: left knee intra-articular joint injection: Greater than 50% % relief. 08/15/22: Left knee intra-articular joint injection: >50% relief. 06/22/2022: L5/S1 Left Parasagittal Interlaminar WARREN - Approximately 75% resolution of low back muscle spasms and posterior leg pain. 08/11/21: Radiofrequency lesioning medial branch nerves, Right L3, L4 medial branches and L5 dorsal ramus (L4/5 and L5/S1) (2 levels, 3 nerves): 15 months of relief >70%. 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 Peripheral artery insufficiency Essential hypertension Hypothyroidism Morbid obesity Restless leg Chronic back pain Allergic rhinitis Left shoulder pain Lumbar spondylosis Surgical History H/O toe surgery H/O total shoulder replacement Social History (Updated 04/11/23 @ 10:20 by NARAYAN Squires) Alcohol intake: current Alcohol intake frequency: holidays/special occasions only Alcohol type: beer and wine Patient Tobacco Use Status: Never used Tobacco Review of Systems Const All systems reviewed & are unremarkable except as noted in HPI and below Physical Exam Vital Signs: Last Vital Signs Pulse 100 04/21/23 11:24 Resp 12 04/21/23 11:24 BP 143/74 H 04/21/23 11:24 Pulse Ox 95 04/21/23 11:24 Oxygen Delivery Method Room Air 04/21/23 11:24 BMI result Body Mass Index 46.1 General: Appears afebrile. Alert and oriented. Mood and affect appropriate. Follows and participates in conversation appropriately. Respiratory effort is unlabored. Able to transition from sit to stand unassisted. Ambulates with bilaterally normal heel strike and toe off. Straight leg raise is positive on the left. Axial low back pain primarily on the left side. Results Reviewed Results Reviewed: No imaging is available for review. Assessment & Plan Assessment & Plan (1) Left hip pain: Code(s): M25.552 - Pain in left hip (2) Lumbar spondylosis: Code(s): M47.816 - Spondylosis without myelopathy or radiculopathy, lumbar region (3) Left shoulder pain: Code(s): M25.512 - Pain in left shoulder Plan 1. Will schedule her for a repeat left L3 L4 medial branch, L5 dorsal ramus radio frequency ablation. Discussed the risks and benefits of the procedure with the patient in detail. All questions were answered. The patient is on board with the plan. Justification for interventional therapy: ? Patient with average pain > 6/10 ? Patient has exhausted conservative therapy ? Patient unable to tolerate physical therapy due to pain ? The patient experienced 15 months of relief from the last radiofrequency ablation more than 75%. Her symptoms have steadily increased over the last few months and she is interested in repeating the RFA. 2. For her groin pain on the left side, I ordered an x-ray of her left hip. 3. For left shoulder pain, depending on the hip x-ray, we will schedule fluoroscopy guided glenohumeral injection, again, potentially dividing the total steroid dose between the shoulder and the hip. I also briefly discussed radiofrequency ablation of the left shoulder that can be considered in the future. Scribed for Dr. Medel by Wesley Saunders, medical tech, on 04/21/2023. I, Dr. Medel, have personally reviewed and agree with the information entered by the scribe. Medications: New gabapentin 300 mg PO BEDTIME 30 caps 0RF Coding Level of Care Code Est Pt Level 4 (01172) Diagnoses Left hip pain M25.552 Lumbar spondylosis M47.816 Left shoulder pain M25.512
[2023-04-21 11:24] VITALS: BP 143/74; PULSE 100; RESP 12; O2SAT 95; BMI 46.1
== END 2023-04-21 11:49 | disposition home or self-care (01) ==
PROVIDERS: PCP Internal Medicine; Visit Provider Internal Medicine
DX: M25.552 Pain in left hip (principal); M47.816 Spondylosis without myelopathy or radiculopathy, lumbar region; M25.512 Pain in left shoulder
CPT/HCPCS: 99214

== ENCOUNTER 2023-05-01 13:38 | Outpatient (REF) | payer MEDICARE, OTHER, SELFPAY ==
--- NOTE | ~2023-05-01 | US_ITS ---
EXAMINATION: XR ULTRASOUND LEFT LEG ANTERIOR REEVES CLINICAL INFORMATION: Lump of left leg, benign lipomatous neoplasm of skin in subcutaneous tissues. COMPARISON: None available. TECHNIQUE: Targeted ultrasound images were obtained by the hydroelectric plant maintainer of the area of concern as indicated by the patient in the left lower leg, anterior reeves area of lumps. Radiologist was not in attendance. Images were later provided for interpretation. . FINDINGS: There is a 4.1 x 1.8 x 2.6 cm anechoic fluid collection with well circumscribed margins in the area of concern indicated by the patient along the anterior aspect of the left lower leg. No internal vascularity was demonstrated. US/US extremity nonvascular IMPRESSION: There is a 4.1 cm anechoic fluid collection in the area of concern indicated by the patient along the anterior aspect of the left lower leg. Decisions regarding further management should be based on clinical assessment.
== END 2023-05-01 13:39 | disposition home or self-care (01) ==
LOC: HO.US 13:38
PROVIDERS: PCP Internal Medicine; Visit Provider Surgery
DX: D17.24 Benign lipomatous neoplasm of skin and subcutaneous tissue of left leg (principal); M79.606 Pain in leg, unspecified
CPT/HCPCS: 76882

== ENCOUNTER 2023-05-05 09:20 | Outpatient (AMB) | payer MEDICARE, OTHER, SELFPAY ==
--- NOTE | 2023-05-05 09:25 | MHC.OFFVIS ---
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 She reports left-sided hip pain. She also reports groin pain. She states that her pain is worse every day, which makes her tearful. Her recent x-ray showed significant arthritis in her hip and pubic symphysis, and her left side is worse than the right side. She states that her RFA is not scheduled yet. She is taking gabapentin at night and includes Tylenol and ibuprofen with it. She used to take Tramadol in the past. She has also used heat and cold compression for relief. She also reports left shoulder pain. Past procedures: 01/23/23: Trigger Point Injections: 50% relief. 12/16/22: left AC joint and bicipital groove injection: Moderate relief 10/14/22: left knee intra-articular joint injection: Greater than 50% % relief. 08/15/22: Left knee intra-articular joint injection: >50% relief. 06/22/2022: L5/S1 Left Parasagittal Interlaminar WARREN - Approximately 75% resolution of low back muscle spasms and posterior leg pain. 08/11/21: Radiofrequency lesioning medial branch nerves, Right L3, L4 medial branches and L5 dorsal ramus (L4/5 and L5/S1) (2 levels, 3 nerves): 15 months of relief >70%. 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 Peripheral artery insufficiency Essential hypertension Hypothyroidism Morbid obesity Restless leg Chronic back pain Allergic rhinitis Left shoulder pain Lumbar spondylosis Surgical History H/O toe surgery H/O total shoulder replacement Social History (Updated 04/11/23 @ 10:20 by NARAYAN Squires) Alcohol intake: current Alcohol intake frequency: holidays/special occasions only Alcohol type: beer and wine Patient Tobacco Use Status: Never used Tobacco Review of Systems Const All systems reviewed & are unremarkable except as noted in HPI and below Physical Exam Vital Signs: Last Vital Signs Pulse 87 05/05/23 09:30 BP 136/88 05/05/23 09:30 Pulse Ox 96 05/05/23 09:30 Oxygen Delivery Method Room Air 05/05/23 09:30 BMI result Body Mass Index 46.1 General: Appears afebrile. Alert and oriented. Mood and affect appropriate. Follows and participates in conversation appropriately. Respiratory effort is unlabored. Able to transition from sit to stand unassisted. Ambulates with bilaterally normal heel strike and toe off. Results Reviewed Results Reviewed: 04/21/23: XR HIP, LEFT FINDINGS: No acute fracture or dislocation. Hip joint spaces are maintained. Moderate osteoarthritis involving the pubic symphysis with loss of joint space and osteophytosis. Soft tissues are unremarkable. IMPRESSION: Moderate osteoarthritis involving the pubic symphysis with loss of joint space and osteophytosis. Hip joint spaces are maintained. Assessment & Plan Assessment & Plan (1) Left hip pain: Code(s): M25.552 - Pain in left hip (2) Left shoulder pain: Code(s): M25.512 - Pain in left shoulder Plan Will schedule her for a left hip intraarticular joint injection for hip pain. Will schedule her for a left glenohumeral shoulder injection for left sided shoulder pain at the same time. Discussed the risks and benefits of the procedure with the patient in detail. All questions were answered. The patient is on board with the plan. In the meantime, I recommended taking Celebrex for her pain and informed her that she should not combine it with other anti-inflammatories. We will also be scheduling the lumbar radiofrequency ablation as previously decided. Justification for interventional therapy: ? Patient with average pain > 6/10 ? Patient has exhausted conservative therapy ? Patient unable to tolerate physical therapy due to pain. ? Previous injection provided >50% relief x > [address] Medel by Wesley Saunders, district medical examiner, on 05/05/2023. I, Dr. Medel, have personally reviewed and agree with the information entered by the scribe. Medications: New celecoxib do not combine with other anti-inflammatories 200 mg PO BID 60 caps 0RF Coding Level of Care Code Est Pt Level 4 (53072) Diagnoses Left hip pain M25.552 Left shoulder pain M25.512
[2023-05-05 09:30] VITALS: BP 136/88; PULSE 87; O2SAT 96; BMI 46.1
== END 2023-05-05 10:02 | disposition home or self-care (01) ==
PROVIDERS: PCP Internal Medicine; Visit Provider Internal Medicine
DX: M25.552 Pain in left hip (principal); M25.512 Pain in left shoulder
CPT/HCPCS: 99214

== ENCOUNTER → 2023-05-05 09:20 | Outpatient (BNVA) | payer MEDICARE, OTHER, SELFPAY | PROVIDERS: PCP Internal Medicine; Visit Provider Internal Medicine | DX: M25.552 Pain in left hip (principal); M25.512 Pain in left shoulder | CPT/HCPCS: 99212 ==

== ENCOUNTER 2023-05-22 10:57 | Outpatient (AMB) | payer MEDICARE, OTHER, SELFPAY ==
--- NOTE | 2023-05-22 11:00 | MHC.OFFVIS ---
Intake Intake Visit Reasons: Lump of left leg, US results Intake Note: Patient is seen in office for ultrasound results of the left lower leg. Patient c/o: reports no changes. Advertiser Required: No Accompanied by: Self / Same As Patient Allergies No Known Allergies Allergy (Verified 05/22/23 11:02) HPI HPI Comments History of Present Illness Details Patient presents status post ultrasound of left lower extremity confirming the soft tissue mass most likely consistent with a lipoma. It is still symptomatic and the patient wishes to have it excised. Chart was reviewed patient evaluated patient was seen several weeks ago for the initial evaluation. [facility] Medical History shelter (current) use of opiate analgesic Peripheral artery insufficiency Essential hypertension Hypothyroidism Morbid obesity Restless leg Chronic back pain Allergic rhinitis Left shoulder pain Lumbar spondylosis Surgical History H/O toe surgery H/O total shoulder replacement Social History Alcohol intake: current Alcohol intake frequency: holidays/special occasions only Alcohol type: beer and wine Patient Tobacco Use Status: Never used Tobacco Physical Exam Const Other: Patient is wheelchair-bound because of limited mobility secondary to hip and lower extremity and back symptoms. Chest Other: Chest breath sounds bilaterally, HS 1 in 2 GI Other: Abdomen soft corpulent, benign Extrem Other: Patient has approximately 5 x 4 cm anterolateral mid left lower extremity soft tissue mass. Assessment & Plan Assessment & Plan (1) Lipoma of left lower extremity: Code(s): D17.24 - Benign lipomatous neoplasm of skin and subcutaneous tissue of left leg Plan Risks, benefits, alternatives of excision of left lower extremity soft tissue mass were reviewed with the patient and included but not limited to bleeding, infection, recurrence, numbness, pain, scarring, nonhealing, seroma, wound dehiscence and the patient wishes to proceed. All questions answered. Arrangements will be made for this. Coding Level of Care Code Est Pt Level 5 (83132) Diagnoses Lipoma of left lower extremity D17.24
== END 2023-05-22 11:25 | disposition home or self-care (01) ==
PROVIDERS: PCP Internal Medicine; Visit Provider Surgery
DX: D17.24 Benign lipomatous neoplasm of skin and subcutaneous tissue of left leg (principal)
CPT/HCPCS: 99214

== ENCOUNTER → 2023-05-22 10:57 | Outpatient (BNVA) | payer MEDICARE, OTHER, SELFPAY | PROVIDERS: PCP Internal Medicine; Visit Provider Surgery | DX: D17.24 Benign lipomatous neoplasm of skin and subcutaneous tissue of left leg (principal) | CPT/HCPCS: 99212 ==

== ENCOUNTER 2023-06-08 06:20 | Outpatient (REF) | payer MEDICARE, OTHER, SELFPAY ==
--- NOTE | ~2023-06-08 | FL_ITS ---
EXAMINATION: XR FLUOROSCOPY WITH IMAGES CLINICAL INFORMATION: Pain left L3, L4, L5 COMPARISON: 06/22/2022 TECHNIQUE: Fluoroscopic imaging guidance during lumbar injection procedures performed by Dr. Cochran. Fluoroscopy exposure time: 38.7 seconds Dose: 31.63 mGy Dose area product: This information is not provided on the dose summary sheet. Images saved: 4 FINDINGS: The purpose of this report is to document use of fluoroscopic imaging equipment during L3, L4 and L5 nerve root sleeve injection procedures. Please refer to the procedure report by Dr. Cochran.
== END 2023-06-08 06:21 | disposition home or self-care (01) ==
LOC: CF 06:20
PROVIDERS: Visit Provider Internal Medicine
DX: M47.816 Spondylosis without myelopathy or radiculopathy, lumbar region (principal); M25.552 Pain in left hip
CPT/HCPCS: 64635; 64636; J2795

== ENCOUNTER 2023-06-08 13:01 | Outpatient (AMB) | payer MEDICARE, OTHER, SELFPAY ==
[2023-06-08 13:08] VITALS: BP 132/64; PULSE 92; O2SAT 98
--- NOTE | 2023-06-08 13:08 | MHC.OFFVIS ---
Intake Vital Signs 06/08/23 13:08 06/08/23 14:33 Height 5 ft 5 in BP 132/64 120/74 Blood Pressure Location Rt radial Lt radial Position Sitting Sitting Pulse 92 87 Pulse Source Doppler Doppler Pulse Oximetry (%) 98 98 Oxygen Delivery Method Room Air Room Air Intake Visit Reasons: Left L3-L4-DR-L5 RFA Allergies No Known Allergies Allergy (Verified 05/22/23 11:02) HPI Left L3-L4-DR-L5 RFA HPI Details Patient presents for scheduled procedure. Denies any recent cough, cold, infection, fever or other significant changes in medical history since last office visit. She reports increased pain in her left lower extremity associated with some swelling. She is interested in proceeding with the procedure as scheduled. 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 Peripheral artery insufficiency Essential hypertension Hypothyroidism Morbid obesity Restless leg Chronic back pain Allergic rhinitis Left shoulder pain Lumbar spondylosis Surgical History H/O toe surgery H/O total shoulder replacement Social History Alcohol intake: current Alcohol intake frequency: holidays/special occasions only Alcohol type: beer and wine Patient Tobacco Use Status: Never used Tobacco Physical Exam Vital Signs: Last Vital Signs Pulse 87 06/08/23 14:33 BP 120/74 06/08/23 14:33 Pulse Ox 98 06/08/23 14:33 Oxygen Delivery Method Room Air 06/08/23 14:33 Office Procedures Details: Radiofrequency lesioning medial branch nerves, Left L3, L4 medial branches and L5 dorsal ramus (L4/5 and L5/S1) (2 levels, 3 nerves) After obtaining written consent, pre-procedure blood pressure and heart rate were stable and recorded in the nursing record. Standard monitors were applied. The patient was placed in the prone position. The lumbar area was prepped with chloraprep and draped in sterile fashion. The skin over the target for each medial branch nerve was anesthetized with 0.5% lidocaine. An 18 gauge radiofrequency cannula was advanced to each target site under fluoroscopic guidance. No paresthesias were elicited with needle placement and aspiration was negative for heme and CSF. Impedences were verified under 600 ohms. Sensory testing (50 Hz) and then motor testing (2 Hz) confirmed needle placement at each site within the appropriate voltage thresholds. Each site was injected with 0.5 ml 2% preservative-free lidocaine. Radiofrequency lesioning was performed for 90 seconds at 80 deg Celcius. Each site was then injected with 0.5ml 2% lidocaine. The needle was removed, skin cleansed and a sterile bandage was applied. The patient tolerated the procedure well and no complications were encountered. Following the procedure the patient's vital signs were stable. The patient was discharged home in good condition with post-procedural instructions. Time Out: Immediately prior to the procedure, the following was verbally confirmed that there is a signed consent form and that the correct patient, planned procedure, site and side are consistent with documentation and that necessary equipment and/or blood products are available prior to the start of the case. Complications: none EBL: <5 cc Probe Reference # [id number] (3) Grounding Pad Lot # [id number] - RFA Lumbar Medial Branches 89943 - Lumbar Medial Branches ADDNL Procedure code (CPT) selection complete Assessment & Plan Assessment & Plan (1) Lumbar spondylosis: Code(s): M47.816 - Spondylosis without myelopathy or radiculopathy, lumbar region Plan Patient is status post left L3, L4 medial branches, L5 dorsal ramus radiofrequency ablation. Patient tolerated procedure well and was discharged home in stable condition with discharge instructions. All questions were answered. We will follow-up via telephone or in clinic to assess response to therapy. A follow-up appointment was made during today's visit. Orders: Orders FL guidance in treatment room 06/15/23 M25.552 - Pain in left hip FL guidance in treatment room 06/08/23 M47.816 - Spondylosis without myelopathy or radiculopathy, lumbar region Coding Level of Care Code Procedure Only Diagnoses Lumbar spondylosis M47.816 CPT Codes Radiofrequency Ablation - Rad-Ablation 3: 47601 - RFA Lumbar Medial Branches ([id number]) Radiofrequency Ablation - Rad-Ablation 4: 41129 - Lumbar Medial Branches ADDNL ([id number])
[2023-06-08 14:33] VITALS: BP 120/74; PULSE 87; O2SAT 98
== END 2023-06-08 14:36 | disposition home or self-care (01) ==
LOC: HO.PMCPRC 13:01
PROVIDERS: PCP Internal Medicine; Visit Provider Internal Medicine
DX: M47.816 Spondylosis without myelopathy or radiculopathy, lumbar region (principal)
CPT/HCPCS: 64635; 64636

== ENCOUNTER 2023-06-22 06:14 | Outpatient (REF) | payer MEDICARE, OTHER, SELFPAY ==
--- NOTE | ~2023-06-22 | FL_ITS ---
EXAMINATION: FL FLUOROSCOPY WITH IMAGES CLINICAL INFORMATION: Pain in left shoulder. COMPARISON: Fluoroscopy 06/08/2023. Radiographs 06/22/2022 clavicle. TECHNIQUE: Fluoroscopy Supervised By: Dr. Destin Medel. Fluoroscopy Time: 0.2. Cumulative Dose: 2.16 mGy. DAP: 0.0176 Gy-cm2. Images: 2. FINDINGS: Fluoroscopic imaging demonstrates a needle projecting over right humeral head with contrast. FL/FL guidance in treatment room IMPRESSION: Fluoroscopic imaging provided for pain management.
--- NOTE | ~2023-06-22 | FL_ITS ---
EXAMINATION: XR FLUOROSCOPY WITH IMAGES CLINICAL INFORMATION: Pain in left hip. COMPARISON: None available. TECHNIQUE: Fluoroscopy Supervised By: Dr. Medel. Fluoroscopy Time: 0.1 minute. Cumulative Dose: 5.93 mGy. DAP: 0.0666 Gycm2. Images: 2. FINDINGS: Fluoroscopic imaging provided for procedure injection into the hip performed by Dr. Medel. Please refer to operative report for more detailed evaluation. FL/FL guidance in treatment room IMPRESSION: Fluoroscopic imaging provided for procedure injection into the hip performed Dr. Medel.
== END 2023-06-22 06:15 | disposition home or self-care (01) ==
LOC: CF 06:14
PROVIDERS: Visit Provider Internal Medicine
DX: M25.512 Pain in left shoulder (principal); M25.552 Pain in left hip
CPT/HCPCS: 20610

== ENCOUNTER 2023-06-22 14:10 | Outpatient (AMB) | payer MEDICARE, OTHER, SELFPAY ==
[2023-06-22 14:17] VITALS: BP 128/70; PULSE 90; RESP 18; O2SAT 94; BMI 46.6
--- NOTE | 2023-06-22 14:17 | A.OFFVIS_ITS ---
Intake Vital Signs 06/22/23 14:17 06/22/23 15:31 Height 5 ft 5 in 5 ft 5 in Weight 280 lb 280 lb BMI 46.6 46.6 BP 128/70 138/70 Blood Pressure Location Lt radial Lt radial Position Sitting Sitting Respiration 18 18 Pulse 90 89 Pulse Source Pulse Oximeter Pulse Oximeter Pulse Oximetry (%) 94 96 Oxygen Delivery Method Room Air Room Air Comment Pre-Op Post-Op Intake Visit Reasons: Left intraarticular hip/Left glenohumeral Allergies No Known Allergies Allergy (Verified 06/22/23 15:32) HPI Left intraarticular hip/Left glenohumeral HPI Details Patient presents for scheduled procedure. Denies any recent cough, cold, infection, fever or other significant changes in medical history since last office visit. [facility] Medical History prison (current) use of opiate analgesic Peripheral artery insufficiency Essential hypertension Hypothyroidism Morbid obesity Restless leg Chronic back pain Allergic rhinitis Left shoulder pain Lumbar spondylosis Surgical History H/O toe surgery H/O total shoulder replacement Social History Alcohol intake: current Alcohol intake frequency: holidays/special occasions only Alcohol type: beer and wine Patient Tobacco Use Status: Never used Tobacco Physical Exam Vital Signs: Last Vital Signs Pulse 90 06/22/23 14:17 Resp 18 06/22/23 14:17 BP 128/70 06/22/23 14:17 Pulse Ox 94 06/22/23 14:17 Oxygen Delivery Method Room Air 06/22/23 14:17 BMI result Body Mass Index 46.6 Office Procedures Joint Injection/Drain Joint Injection/Drain Details: Hip Intra-articular and greater trochanteric bursa Injection, fluoroscopy guided, left After informed written consent was obtained, the patient was placed in the lateral position. Pre-procedure oxygen saturation, heart rate, and blood pressure were recorded. The skin was prepped with Chloroprep, and draped in a sterile fashion. With the use of fluroscopy the hip joint was identified. With a 25-gauge 1.5 hypodermic needle 0.75% lidocaine was injected subcutaneously over the entry site. A 22-gauge 3.5 spinal needle was then advanced toward the junction of the joint capsule and femoral neck. Once in position, and after negative aspiration, 0.5mL of Omnipaque was injected outlining the joint capsule followed by injection of 30 mg Kenalog mixed with 0.5% ropivacaine (3mL total). The needle was then withdrawn slightly and advanced towards the left GTB. After confirmation with Omnipaque, 20 mg of Kenalog mixed with 1 mL 0.5% ropivacaine was administered to the left GTB. There was no evidence of paresthesias throughout needle placement. The stylet was replaced and then the needle was withdrawn. The patient tolerated the procedure well and there was no evidence of procedural complications. EBL: <1cc Primary Site: left shoulder Prep: site was prepped using sterile technique Injected: Kenalog (30 mg), with 3 mL of (Ropivacaine 0.5%) and in the joint Approach Used: anterior Procedure: The patient tolerated the procedure well Coding 52808 - Large joint (Hip and GTB) 08874 - Glenohumeral/Tronchanteric Bursa/Intraarticular Procedure code (CPT) selection complete Assessment & Plan Assessment & Plan (1) Left shoulder pain: Code(s): M25.512 - Pain in left shoulder (2) Left hip pain: Code(s): M25.552 - Pain in left hip Plan Patient is status post left hip and left shoulder intra-articular injections under fluoroscopy. Patient tolerated procedure well and was discharged home in stable condition with discharge instructions. All questions were answered. We will follow-up via telephone or in clinic to assess response to therapy. A follow-up appointment was made during today's visit. Orders: Orders FL guidance in treatment room Today M25.512 - Pain in left shoulder Coding Level of Care Code Procedure Only Diagnoses Left shoulder pain M25.512 Left hip pain M25.552 CPT Codes Coding - 76272 Large joint: 83231 - Large joint ([id number]) Coding - Joint 7: 04277 - Glenohumeral/Tronchanteric Bursa/Intraarticular ([id number])
[2023-06-22 15:31] VITALS: BP 138/70; PULSE 89; RESP 18; O2SAT 96; BMI 46.6
== END 2023-06-22 15:34 | disposition home or self-care (01) ==
LOC: HO.PMCPRC 14:10
PROVIDERS: PCP Internal Medicine; Visit Provider Internal Medicine
DX: M25.512 Pain in left shoulder (principal); M25.552 Pain in left hip
CPT/HCPCS: 20610; 77002

== ENCOUNTER 2023-06-30 09:49 | Outpatient (AMB) | payer MEDICARE, OTHER, SELFPAY ==
--- NOTE | 2023-06-30 10:02 | A.OFFVIS_ITS ---
Intake Vital Signs 06/30/23 10:04 Height 5 ft 5 in Weight 270 lb BMI 44.9 BP 133/73 Blood Pressure Location Lt radial Position Sitting Respiration 12 Pulse 95 Pulse Source Pulse Oximeter Pulse Oximetry (%) 95 Oxygen Delivery Method Room Air Intake Visit Reasons: s/p lumbar RFA/ Left hip& shoulder inj Allergies No Known Allergies Allergy (Verified 06/30/23 10:05) Medication List - Last Reconciled 06/30/23 by Karina Li LPN celecoxib 200 mg PO BID cyclobenzaprine 10 mg PO BEDTIME diclofenac sodium 3% 1 appl topical BID furosemide 20 mg PO DAILY gabapentin 300 mg PO BEDTIME levothyroxine 200 mcg PO DAILY levothyroxine 75 mcg PO DAILY lidocaine 5% 0 patches topical losartan-hydrochlorothiazide 100-25 mg 1 tab PO DAILY meloxicam 15 mg PO DAILY ropinirole 1 mg PO TID telmisartan-hydrochlorothiazid 80-12.5 mg 1 tab PO DAILY topiramate 25 mg PO DAILY HPI s/p lumbar RFA/ Left hip& shoulder inj HPI Details 67-year-old female who presents today to the office for a status post lumbar RFA and left hip and shoulder injection. The patient reports 100% relief for hip and back pain following the RFA procedure. Rigo reports 70% relief from the shoulder injection. She is able to move without any pain. She can get in and out of the bed without any pain. She inquired about discontinuing the muscle relaxant and using it as needed.? Past procedures: 06/22/23: Hip Intra-articular and greate r trochanteric bursa Injection, fluoroscopy guided, left: 70% relief. 06/08/23: Radiofrequency lesioning medial branch nerves, Left L3, L4 medial branches and L5 dorsal ramus (L4/5 and L5/S1) (2 levels, 3 nerves): 100% relief for hip and back pain. 01/23/23: Trigger Point Injections: 50% relief. 12/16/22: left AC joint and bicipital gr oove injection: Moderate relief 10/14/22: left knee intra-articular join t injection: Greater than 50% % relief. 08/15/22: Left knee intra-articular join t injection: >50% relief. 06/22/2022: L5/S1 Left Parasagittal Inte rlaminar WARREN - Approximately 75% resolu tion of low back muscle spasms and posterior leg pain. 08/11/21: Radiofrequency lesioning media l branch nerves, Right L3, L4 medial branches and L5 dorsal ramus (L4/5 and L5/S1) (2 levels, 3 nerves): 15 months of relief >70%. [facility] Medical History shelter (current) use of opiate analgesic Peripheral artery insufficiency Essential hypertension Hypothyroidism Morbid obesity Restless leg Chronic back pain Allergic rhinitis Left shoulder pain Lumbar spondylosis Surgical History H/O toe surgery H/O total shoulder replacement Social History Alcohol intake: current Alcohol intake frequency: holidays/special occasions only Alcohol type: beer and wine Patient Tobacco Use Status: Never used Tobacco Review of Systems Const All systems reviewed & are unremarkable except as noted in HPI and below Physical Exam Vital Signs: Last Vital Signs Pulse 95 06/30/23 10:04 Resp 12 06/30/23 10:04 BP 133/73 06/30/23 10:04 Pulse Ox 95 06/30/23 10:04 Oxygen Delivery Method Room Air 06/30/23 10:04 BMI result Body Mass Index 44.9 General: Appears afebrile. Alert and oriented. Mood and affect appropriate. Follows and participates in conversation appropriately. Respiratory effort is unlabored. Able to transition from sit to stand unassisted. Ambulates with bilaterally normal heel strike and toe off. Results Reviewed Results Reviewed: No imaging is available for review. Assessment & Plan Assessment & Plan (1) Lumbar spondylosis: Code(s): M47.816 - Spondylosis without myelopathy or radiculopathy, lumbar region (2) Left hip pain: Code(s): M25.552 - Pain in left hip (3) Left shoulder pain: Code(s): M25.512 - Pain in left shoulder Plan The patient has had good relief from the last round of procedures. The patient will follow-up as needed. Scribed for Dr. Medel by Wesley Saunders, medical insurance verifier, on 06/30/2023. I, Dr. Medel, have personally reviewed and agree with the information entered by the scribe. Coding Level of Care Code Est Pt Level 2 (02050) Diagnoses Lumbar spondylosis M47.816 Left hip pain M25.552 Left shoulder pain M25.512
[2023-06-30 10:04] VITALS: BP 133/73; PULSE 95; RESP 12; O2SAT 95; BMI 44.9
== END 2023-06-30 11:04 | disposition home or self-care (01) ==
PROVIDERS: PCP Internal Medicine; Visit Provider Internal Medicine
DX: M47.816 Spondylosis without myelopathy or radiculopathy, lumbar region (principal); M25.552 Pain in left hip; M25.512 Pain in left shoulder
CPT/HCPCS: 99213

== ENCOUNTER → 2023-06-30 09:49 | Outpatient (BNVA) | payer MEDICARE, OTHER, SELFPAY | PROVIDERS: PCP Internal Medicine; Visit Provider Internal Medicine | DX: M47.816 Spondylosis without myelopathy or radiculopathy, lumbar region (principal); M25.552 Pain in left hip; M25.512 Pain in left shoulder | CPT/HCPCS: 99212 ==

== ENCOUNTER 2023-07-21 10:11 | Day surgery (SDC) | payer MEDICARE, OTHER, SELFPAY ==
--- NOTE | 2023-07-20 16:25 | MHC.SHP ---
Pre-Procedural Eval Section A - 24 Hr Update-Section A only Date of Service: 07/20/23 The patient is an INPATIENT: No Changes since office visit: No Cold of Flu in the past 2 weeks, No New Medical Problems, No Changes in Medication and No Patient answered all questions The patient has been examined within 24 hours of the surgical procedure. The History & Physical has been completed within 30 days and I have reviewed it.: Yes Section B - Complete if H&P > 30 days Chief Complaint: Benign lipomatous neoplasm of skin and subcutaneou Allergies: Allergies Allergy/AdvReac Type Severity Reaction Status Date / Time No Known Allergies Allergy Verified 06/30/23 10:05 Plan I have reviewed the history and physical and performed a pertinent physical examination on my patient. No changes have occurred unless specified. Time Spent With Patient Time: Total time managing care of this patient today ____ minutes.
[2023-07-21 11:13] VITALS: BMI 46.1
--- NOTE | 2023-07-21 11:20 | HO.ANESPROP2 ---
Documented by User: Kristen Murray NP 07/19/23 14:35 HPI - Anesthesia Eval Consult details Narrative: 67yo F for Left Wide Local Excision of Anterolateral Mid Lower Extremity Tumor/Mass PMFSH Active Problems Active Problems: All Active Problems (Updated 04/21/23 @ 13:08 by Mercedes Cochran APRN, BUSINESS PROJECT MANAGER) Left hip pain (Acute) Lipoma of left lower extremity (Acute) Leg pain, anterior (Acute) Osteoarthritis of left knee (Acute) Pain in clavicular joint (Acute) Lumbar radicular pain (Acute) Synovial cyst of popliteal space [[place]], left knee (Acute) Myofascial pain (Acute) half-way (current) use of opiate analgesic (Acute) Sciatica (Acute) Peripheral artery insufficiency (Acute) Essential hypertension (Acute) Hypothyroidism (Acute) Morbid obesity (Acute) Restless leg (Acute) Chronic back pain (Acute) Allergic rhinitis (Acute) Left shoulder pain (Acute) Lumbar spondylosis (Acute) Past Medical History 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 Peripheral 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 insufficiency Essential hypertension Hypothyroidism Morbid obesity Restless leg Chronic back pain Allergic rhinitis Left shoulder pain Lumbar spondylosis Surgical History Surgical History (Updated 07/21/23 @ 11:08 by Jeannine Lopes RN) Hx of cataract surgery H/O toe surgery H/O total shoulder replacement Social History Social History Alcohol intake: current Alcohol intake frequency: holidays/special occasions only Alcohol type: beer and wine Patient Tobacco Use Status: Never used Tobacco Advance Directives: No Advance Directives Information Provided: Yes Meds Allergies Allergy/AdvReac Type Severity Reaction Status Date / Time No Known Allergies Allergy Verified 07/21/23 11:06 Home Medications Medication Instructions Recorded Confirmed Last Taken Type furosemide 20 mg tablet 20 mg PO DAILY 04/26/21 07/21/23 Unknown History levothyroxine 200 mcg tablet 200 mcg PO DAILY 04/26/21 07/21/23 Unknown History losartan 100 1 tab PO DAILY 04/26/21 07/21/23 Unknown History mg-hydrochlorothiazide 25 mg tablet ropinirole 1 mg tablet 1 mg PO TID 04/26/21 07/21/23 Unknown History levothyroxine 75 mcg tablet 75 mcg PO DAILY 09/16/22 07/21/23 Unknown History lidocaine 5 % topical patch 0 patch topical 09/16/22 06/30/23 Unknown History topiramate 25 mg tablet 25 mg PO DAILY 05/05/23 07/21/23 Unknown History Assessment and Plan Assessment Anesthesia Assessment: Chart Reviewed Documented by User: Yanet Walker DO 07/21/23 11:21 [facility] Past Medical History 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 Peripheral artery insufficiency Essential hypertension Hypothyroidism Morbid obesity Restless leg Chronic back pain Allergic rhinitis Left shoulder pain Lumbar spondylosis Family History Family history of problems with anesthesia: No Surgical History Surgical History (Updated 07/21/23 @ 11:08 by Jeannine Lopes RN) Hx of cataract surgery H/O toe surgery H/O total shoulder replacement History of Problems with Anesthesia: No Social History Social History Alcohol intake: current Alcohol intake frequency: holidays/special occasions only Alcohol type: beer and wine Patient Tobacco Use Status: Never used Tobacco Advance Directives: No Advance Directives Information Provided: Yes Meds Allergies Allergy/AdvReac Type Severity Reaction Status Date / Time No Known Allergies Allergy Verified 07/21/23 11:06 Home Medications Medication Instructions Recorded Confirmed Last Taken Type furosemide 20 mg tablet 20 mg PO DAILY 04/26/21 07/21/23 Unknown History levothyroxine 200 mcg tablet 200 mcg PO DAILY 04/26/21 07/21/23 Unknown History losartan 100 1 tab PO DAILY 04/26/21 07/21/23 Unknown History mg-hydrochlorothiazide 25 mg tablet ropinirole 1 mg tablet 1 mg PO TID 04/26/21 07/21/23 Unknown History levothyroxine 75 mcg tablet 75 mcg PO DAILY 09/16/22 07/21/23 Unknown History lidocaine 5 % topical patch 0 patch topical 09/16/22 06/30/23 Unknown History topiramate 25 mg tablet 25 mg PO DAILY 05/05/23 07/21/23 Unknown History Exam Exam Date and Time: July 21, 2023 1115 Height,Weight and Vital Signs: Height 5 ft 5 in Weight 125.646 kg Airway Mallampati Class: II TM Dist: >3cm Neck ROM: Full Loose/Missing/Broken Teeth: No (a few missing and broken teeth) Heart: S1S2 Lungs: CTAB Assessment and Plan Assessment Anesthesia Assessment: Anesthesia Plan Discussed and Chart Reviewed Final Anesthetic Review Family History of Problems with Anesthesia: No History of Problems with Anesthesia: No NPO: Yes ASA Class: III Final Preanesthetic Review: No Changes in Pt Med Stat, Meds/Allgs Chart Reviewed, Consent Obtained/Reviewed and Anes Risks/Benef Reviewed Patient Risk: Intermediate Procedure Risk: Low Anesthetic Plan Anesthetic Plan: MAC: and Agree w/ Assess. and Plan Disposition: Standard PACU
[2023-07-21 11:24] VITALS: BP 135/84; PULSE 78; RESP 16; TEMP 36.3; O2SAT 95
[2023-07-21] MEDS: Lactated Ringers 1,000 ML 100 ML IVCONT (11:39)
[2023-07-21 12:22] VITALS: BP 114/63; PULSE 87; RESP 16; TEMP 36.3; O2SAT 94
[2023-07-21 12:27] VITALS: BP 117/77; PULSE 86; RESP 16; O2SAT 98
[2023-07-21 12:37] VITALS: BP 124/91; PULSE 80; RESP 16; O2SAT 100
--- NOTE | 2023-07-21 12:46 | P.OP_ITS ---
Operative Note Operative Note Date of Service: 07/21/23 Narrative: Preoperative diagnosis: [] Anterolateral mid left leg mass Postop diagnosis: [] The same Procedure [] wide local excision left leg mass Surgeon: [] Terry Sanding Machine Operator Or Tender: [] Jaden Type of Anesthesia: [] MAC Indication for surgery: [] Approximately 5 x 3 cm left anterolateral leg mass which was partly solid and partially cystic. Findings: [] Patient brought to the operating room, placed on operative table supine position, after an adequate level of MAC anesthesia was induced, the left lower extremity was prepped and draped in usual sterile fashion using a transverse incision which was in line with the mass position transversely, over the mass in question, this carried down through skin, subcutaneous tissue, or uneventfully enucleation of this solid/cystic mass was uneventfully performed. Specimen sent to pathology. Wounds irrigated, secured hemostasis, and closed using interrupted inverted dermal 3-0 Vicryl sutures followed by Steri-Strips and sterile dressings. Wound was infiltrated 0.5% Marcaine/1% lidocaine at the beginning at the end of the case. Patient tolerated procedure well emerged from anesthesia stable condition. EBL minimal
[2023-07-21 12:52] VITALS: BP 159/97; PULSE 80; RESP 16; O2SAT 100
[2023-07-21 13:07] VITALS: BP 164/100; PULSE 82; RESP 16; TEMP 36.3; O2SAT 100
== END 2023-07-21 14:05 | disposition home or self-care (01) ==
PROVIDERS: PCP Internal Medicine; Visit Provider Surgery
PROC: (CPT 27634; principal; 2023-07-21 12:10)
DX: D17.24 Benign lipomatous neoplasm of skin and subcutaneous tissue of left leg (principal); I73.9 Peripheral vascular disease, unspecified; I10 Essential (primary) hypertension; G89.29 Other chronic pain; J30.9 Allergic rhinitis, unspecified; E03.9 Hypothyroidism, unspecified; Z79.899 Other long term (current) drug therapy; Z79.891 Long term (current) use of opiate analgesic
CPT/HCPCS: 27634; 88304; 88305; 88341; 88342; J0690; J1100; J1596; J2250; J2405; J2704; J2795; J3010

== ENCOUNTER → 2023-07-21 10:11 | Outpatient (BNV) | payer MEDICARE, OTHER, SELFPAY | PROVIDERS: PCP Internal Medicine; Visit Provider Surgery | DX: D21.22 Benign neoplasm of connective and other soft tissue of left lower limb, including hip (principal) | CPT/HCPCS: 27632 ==

== ENCOUNTER 2023-07-31 09:11 | Outpatient (AMB) | payer MEDICARE, OTHER, SELFPAY ==
[2023-07-31 09:22] VITALS: BP 160/80; PULSE 89
--- NOTE | 2023-07-31 09:22 | MHC.OFFVIS ---
Intake Vital Signs 07/31/23 09:22 Weight 279 lb BP 160/80 H Blood Pressure Location Rt brachial Position Sitting Pulse 89 Intake Visit Reasons: S/p WLE LLE tumor/mass Intake Note: Patient here s/p WLE Lt anterolateral mass. Reports incision healing well. Patient c/o: mild yellowish discharge on steri strips SX: 07-21-23. 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 She has no wound issues or complaints. Pathology was reviewed. Benign process. [facility] Medical History alf (current) use of opiate analgesic Peripheral artery insufficiency Essential hypertension Hypothyroidism Morbid obesity Restless leg Chronic back pain Allergic rhinitis Left shoulder pain Lumbar spondylosis Surgical History Hx of surgical procedure (07/21/23) Hx of cataract surgery H/O toe surgery H/O total shoulder replacement Social History Alcohol intake: current Alcohol intake frequency: holidays/special occasions only Alcohol type: beer and wine Patient Tobacco Use Status: Never used Tobacco Physical Exam Vital Signs: Last Vital Signs Pulse 89 07/31/23 09:22 BP 160/80 H 07/31/23 09:22 Extrem Other: Left lower extremity incision site clean dry and intact healing very well. Assessment & Plan Assessment & Plan (1) Status post excision of lipoma: Code(s): Z98.890 - Other specified postprocedural states; Z86.018 - Personal history of other benign neoplasm Plan Patient has been given local instructions, and will follow-up p.r.n.. All questions answered. Coding Level of Care Code Global (55782) Diagnoses Status post excision of lipoma Z98.890; Z86.018
== END 2023-07-31 09:26 | disposition home or self-care (01) ==
PROVIDERS: PCP Internal Medicine; Visit Provider Surgery
DX: Z98.890 Other specified postprocedural states (principal); Z86.018 Personal history of other benign neoplasm
CPT/HCPCS: 99024

== ENCOUNTER → 2023-07-31 09:11 | Outpatient (BNVA) | payer MEDICARE, OTHER, SELFPAY | PROVIDERS: PCP Internal Medicine; Visit Provider Surgery | DX: Z98.890 Other specified postprocedural states (principal); Z86.018 Personal history of other benign neoplasm | CPT/HCPCS: 99212 ==

== ENCOUNTER 2023-08-25 09:41 | Outpatient (AMB) | payer MEDICARE, OTHER, SELFPAY ==
[2023-08-25 10:16] VITALS: BP 153/88; PULSE 88; RESP 16; O2SAT 96; BMI 45.8
--- NOTE | 2023-08-25 10:16 | A.OFFVIS_ITS ---
Vital Signs 08/25/23 10:16 Height 5 ft 5 in Weight 275 lb BMI 45.8 BP 153/88 H Blood Pressure Location Lt radial Position Sitting Respiration 16 Pulse 88 Pulse Source Pulse Oximeter Pulse Oximetry (%) 96 Oxygen Delivery Method Room Air Intake Visit Reasons: Hip pain Allergies No Known Allergies Allergy (Verified 08/25/23 10:18) Medication List - Last Reconciled 08/25/23 by Karina Li LPN celecoxib 200 mg PO BID cyclobenzaprine 10 mg PO BEDTIME diclofenac sodium 3% 1 appl topical BID furosemide 20 mg PO DAILY levothyroxine 200 mcg PO DAILY levothyroxine 75 mcg PO DAILY lidocaine 5% 0 patches topical losartan-hydrochlorothiazide 100-25 mg 1 tab PO DAILY meloxicam 15 mg PO DAILY ropinirole 1 mg PO TID topiramate 25 mg PO DAILY HPI HPI Hip pain: Details: 67-year-old female who presents today to the office for a hip pain. She states that her pain has improved and that she has been able to move, sleep, and come out of bed without any pain since the RFA in May 2023. She has had two falls since her last visit with us at her home and grocery store. She hit her hip and lower back regions. Her bilateral lower back has been bothersome since the fall. She has not taken gabapentin in recent times and has requested a refill of gabapentin today. She reports worsening of the swelling in her leg. She is taking diuretics for blood pressure and swelling. She is going back to [place] on November 07, 2023. Past procedures: 06/22/23: Hip Intra-articular and greater trochanteric bursa Injection, fluoroscopy guided, left: 70% relief. 06/08/23: Radiofrequency lesioning medial branch nerves, Left L3, L4 medial branches and L5 dorsal ramus (L4/5 and L5/S1) (2 levels, 3 nerves): 100% relief for hip and back pain. 01/23/23: Trigger Point Injections: 50% relief. 12/16/22: left AC joint and bicipital groove injection: Moderate relief 10/14/22: left knee intra-articular joint injection: Greater than 50% % relief. 08/15/22: Left knee intra-articular joint injection: >50% relief. 06/22/2022: L5/S1 Left Parasagittal Interlaminar WARREN - Approximately 75% resolution of low back muscle spasms and posterior leg pain. 08/11/21: Radiofrequency lesioning medial branch nerves, Right L3, L4 medial branches and L5 dorsal ramus (L4/5 and L5/S1) (2 levels, 3 nerves): 15 months of relief >70%. [facility] Medical History [facility] (current) use of opiate analgesic Peripheral artery insufficiency Essential hypertension Hypothyroidism Morbid obesity Restless leg Chronic back pain Allergic rhinitis Left shoulder pain Lumbar spondylosis Surgical History Hx of surgical procedure (07/21/23) Hx of cataract surgery H/O toe surgery H/O total shoulder replacement Social History Alcohol intake: current Alcohol intake frequency: holidays/special occasions only Alcohol type: beer and wine Patient Tobacco Use Status: Never used Tobacco Review of Systems Const All systems reviewed & are unremarkable except as noted in HPI and below Physical Exam Vital Signs: Last Vital Signs Pulse 88 08/25/23 10:16 Resp 16 08/25/23 10:16 BP 153/88 H 08/25/23 10:16 Pulse Ox 96 08/25/23 10:16 Oxygen Delivery Method Room Air 08/25/23 10:16 BMI result Body Mass Index 45.8 General: Appears afebrile. Alert and oriented. Mood and affect appropriate. Follows and participates in conversation appropriately. Respiratory effort is unlabored. Able to transition from sit to stand unassisted. Ambulates with bilaterally normal heel strike and toe off. Office Procedures Injection Trigger Point Multi Pre-procedure diagnosis: Myofascial pain Post-procedure diagnosis: Myofascial pain Site and number of trigger points: lumbar latissimus, dorsi, and multifidus. Solution: Total volume administered 10 ml (5 ml lidocaine 1% + 5 ml bupivacaine 0.25%). The procedure, its benefits, and its risks were explained to the patient and all questions were answered. A pulse oximeter monitor was attached and the patient was monitored throughout the procedure. Prior to the start of the procedure, a ?time out? was performed to confirm correct patient, procedure, and laterality. Trigger points were identified by manual palpation and marked. The skin was cleaned with Chloraprep. A 25 gauge 3.5 inch spinal needle was used. Each of the trigger points were approximated and elevated in the direction away from the body. Dry needling then took place for five seconds. Approximately 0.5 ml to 1 ml of injectate was delivered to the trigger point followed by dry needling for five seconds. This process was repeated at each trigger point site. The patient tolerated the procedure well. Post-procedure, breath sounds were equal at both sides of the chest. The patient tolerated the procedure well, without complication. She had a transient paresthesia on the right-side radiating pain down the leg. The region was monitored for 15 minutes following the procedure from discharge in stable condition. Post-procedure vitals were recorded as part of the nursing discharge note in electronic medical record. Following a period of observation, the patient was discharged in stable condition with written discharge instructions. Trigger Point Multiple: 94972- Trigger point injection =/>3 Results Reviewed Results Reviewed: No imaging is available for review. Assessment & Plan Assessment & Plan (1) Myofascial pain: Code(s): M79.18 - Myalgia, other site Category: Medical (2) Lumbar spondylosis: Code(s): M47.816 - Spondylosis without myelopathy or radiculopathy, lumbar region Category: Medical Plan Patient is status post bilateral trigger point injections. She had a transient paresthesia on the right-side radiating pain down the leg. The region was monitored for 15 minutes following the procedure from discharge in stable condition. All questions were answered. i also refilled gabapentin 300 mg for pain management. We will follow-up in two weeks via telephone or in clinic to assess response to therapy. A follow-up appointment was made during today's visit. Will schedule her for a left L3 L4 medial branch, L5 dorsal ramus radio frequency ablation. Discussed the risks and benefits of the procedure with the patient in detail. All questions were answered. The patient is on board with the plan. Justification for interventional therapy: ? Patient with average pain > 6/10 ? Patient has exhausted conservative therapy ? Patient unable to tolerate physical therapy due to pain. ? She had a good relief from the previous RFAs. . Patient has a good understanding of their pain condition and has appropriate mental and social support Scribed for Dr. Medel by Wesley Saunders, medical csr, on 08/25/2023. I, Dr. Jorge mcguire, have personally reviewed and agree with the information entered by the scribe. Medications: New gabapentin 300 mg PO BEDTIME 30 caps 3RF
== END 2023-08-25 11:07 | disposition home or self-care (01) ==
PROVIDERS: PCP Internal Medicine; Visit Provider Internal Medicine
DX: M79.18 Myalgia, other site (principal)
CPT/HCPCS: 20553; 99213

== ENCOUNTER → 2023-08-25 09:41 | Outpatient (BNVA) | payer MEDICARE, OTHER, SELFPAY | PROVIDERS: PCP Internal Medicine; Visit Provider Internal Medicine | DX: M79.18 Myalgia, other site (principal); M47.816 Spondylosis without myelopathy or radiculopathy, lumbar region | CPT/HCPCS: 20553; 99212; J2795 ==

== ENCOUNTER 2023-10-12 06:17 | Outpatient (REF) | payer MEDICARE, OTHER, SELFPAY ==
--- NOTE | ~2023-10-12 | FL_ITS ---
EXAMINATION: XR FLUOROSCOPY WITH IMAGES CLINICAL INFORMATION: Lumbar radiculopathy. COMPARISON: None available. TECHNIQUE: Fluoroscopy Supervised By: Dr. Medel. Fluoroscopy Time: 0.1 min. Cumulative Dose: 2.73 mGy. DAP: 0.0219 mGym2. Images: 2. FINDINGS: Intraoperative fluoroscopy and spot films were performed during a procedure in the OR. There is a needle projecting over the left lower lumbosacral spine. Contrast media is present around the needle tip. Please see Dr. Medel' report for complete details. FL/FL guidance in treatment room IMPRESSION: Intraoperative fluoroscopy and spot films were obtained. Please see Dr. Medel' report for complete details.
== END 2023-10-12 06:18 | disposition home or self-care (01) ==
LOC: CF 06:17
PROVIDERS: Visit Provider Internal Medicine
DX: M54.16 Radiculopathy, lumbar region (principal)
CPT/HCPCS: 62323; J1100; J3301; Q9967

== ENCOUNTER 2023-10-12 12:42 | Outpatient (AMB) | payer MEDICARE, OTHER, SELFPAY ==
[2023-10-12 12:50] VITALS: BP 130/82; PULSE 76; RESP 20; O2SAT 96; BMI 45.8
--- NOTE | 2023-10-12 12:50 | MHC.OFFVIS ---
Vital Signs 10/12/23 12:50 10/12/23 13:34 Height 5 ft 5 in Weight 275 lb BMI 45.8 BP 130/82 132/86 Blood Pressure Location Lt radial Lt brachial Position Sitting Sitting Respiration 20 18 Pulse 76 18 L Pulse Source Pulse Oximeter Pulse Oximeter Pulse Oximetry (%) 96 94 Oxygen Delivery Method Room Air Room Air Comment Pre-Op Post-op Intake Visit Reasons: Left L5-S1 parasagittal interlaminar WARREN Allergies No Known Allergies Allergy (Verified 08/25/23 10:18) HPI HPI Left L5-S1 parasagittal interlaminar WARREN: Details: Patient presents for scheduled procedure. Denies any recent cough, cold, infection, fever or other significant changes in medical history since last office visit. 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 Peripheral artery insufficiency Essential hypertension Hypothyroidism Morbid obesity Restless leg Chronic back pain Allergic rhinitis Left shoulder pain Lumbar spondylosis Surgical History Hx of surgical procedure (07/21/23) Hx of cataract surgery H/O toe surgery H/O total shoulder replacement Social History Alcohol intake: current Alcohol intake frequency: holidays/special occasions only Alcohol type: beer and wine Patient Tobacco Use Status: Never used Tobacco Physical Exam Vital Signs: Last Vital Signs Pulse 18 L 10/12/23 13:34 Resp 18 10/12/23 13:34 BP 132/86 10/12/23 13:34 Pulse Ox 94 10/12/23 13:34 Oxygen Delivery Method Room Air 10/12/23 13:34 BMI result Body Mass Index 45.8 Office Procedures Joint Injection/Drain Joint Injection/Drain Details: Interlaminar epidural steroid injection, L5-S1, left parasaggital After obtaining written consent, pre-procedure blood pressure and heart rate were stable and recorded in the nursing record. The patient was placed in the prone position. The lumbosacral area was widely prepped with chloraprep and draped in sterile fashion. Fluoroscopic guidance was used to identify the desired interlaminar space and for needle placement. Subcutaneous 0.5% lidocaine was used to anesthetize the skin overlying the target. A 17-gauge Tuohy needle was advanced to the epidural space using loss of resistance to contrast technique under fluoroscopic AP and contralateral oblique views. There was no evidence of heme or CSF and no paresthesias were elicited with needle placement. Confirmation of epidural needle placement was performed with 1cc of omnipaque 180. Next 3 ml 0.5% lidocaine mixed with 80 mg triamcinilone was administered epidurally with no pain elicited on injection. The needle tract tubing was then cleared with 1 ml of 0.5% lidocaine. The needle was removed, skin cleansed and a sterile bandage was applied. The patient tolerated the procedure well and no complications were encountered. Following the procedure the patient's vital signs were stable. The patient was discharged home in good condition with post-procedural instructions. Time Out: Immediately prior to the procedure, the following was verbally confirmed that there is a signed consent form and that the correct patient, planned procedure, site and side are consistent with documentation and that necessary equipment and/or blood products are available prior to the start of the case. Complications: none EBL: <2 cc Coding 02639 - Caudal/Lumbar Epidural/Interlaminar with fluoroscopy Procedure code (CPT) selection complete Assessment & Plan Assessment & Plan (1) Lumbar radicular pain: Code(s): M54.16 - Radiculopathy, lumbar region Category: Medical Plan Patient is status post left parasagittal interlaminar L5-S1 WARREN. Patient tolerated procedure well and was discharged home in stable condition with discharge instructions. All questions were answered. We will follow-up via telephone or in clinic to assess response to therapy. A follow-up appointment was made during today's visit. Orders: Orders FL guidance in treatment room Today M54.16 - Radiculopathy, lumbar region Coding Level of Care Code Procedure Only Diagnoses Lumbar radicular pain M54.16 CPT Codes Coding - Joint 11: 84042 - Caudal/Lumbar Epidural/Interlaminar with fluoroscopy ([id number])
[2023-10-12 13:34] VITALS: BP 132/86; PULSE 18; RESP 18; O2SAT 94
== END 2023-10-12 13:25 | disposition home or self-care (01) ==
LOC: HO.PMCPRC 12:42
PROVIDERS: PCP Internal Medicine; Visit Provider Internal Medicine
DX: M54.16 Radiculopathy, lumbar region (principal)
CPT/HCPCS: 62323